=== PATIENT | female | born 1960 | race Caucasian/White ===

== ENCOUNTER 2017-09-27 17:14 | Inpatient (IN) | payer MEDICARE, OTHER ==
--- NOTE | 2017-09-27 17:28 | ED Physician Chart ---
ED Chief Complaint/HPI - Patient Information Date Seen:: 09/27/17 Time Seen:: 17:15 Chief Complaint:: Agitation History of Present Illness:: onset x 2 days of agitation, combative, and hostile behavior; no report of SIs, H/As, S/T, neck pain, C/P, SOB, cough, Abd. Pain, A/N/V/D/c, fever, chills, or urinary s/s Allergies:: Allergies Allergy/AdvReac Type Severity Reaction Status Date / Time lactose AdvReac Verified 08/31/17 16:05 lamotrigine [From Lamictal] AdvReac Verified 08/31/17 16:05 Penicillins [PCN] AdvReac Verified 08/31/17 16:05 Vitals:: Vital Signs - 8 hr 09/27/17 17:15 Temp 97.5 F HR 88 RR 16 O2 Sat % 98 Historian:: Patient, EMS Review:: Nurse's Note Reviewed, Old Chart Reviewed, EMS run form Reviewed ED Review of Systems - Review of Systems General/Constitutional: No fever, No chills, No weight loss, No weakness, No diaphoresis, No edema, No loss of appetite Skin: No skin lesions, No rash, No bruising Head: No headache, No light-headedness Eyes: No loss of vision, No pain, No diplopia ENT: No earache, No nasal drainage, No sore throat, No tinnitus Neck: No neck pain, No swelling, No thyromegaly, No stiffness, No mass noted Cardio Vascular: No chest pain, No palpitations, No PND, No orthopnea, No edema Pulmonary: No SOB, No cough, No sputum, No wheezing GI: No nausea, No vomiting, No diarrhea, No pain, No melena, No hematochezia, No constipation, No hematemesis G/U: No dysuria, No frequency, No hematuria, No nacturia 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 vaginal discharge, No abnormal vaginal bleed, No contraction Musculoskeletal: No bone or joint pain, No back pain, No muscle pain Endocrine: Polyuria, Polydipsia Psychiatric: Prior psych history, Depression, Anxiety, No suicidal ideation, No homicidal ideation, Auditory hallucination, No visual hallucination Hematopoietic: No bruising, No lymphadenopathy Allergic/Immuno: No urticaria, No angioedema Neurological: No syncope, No focal symptoms, No weakness, No paresthesia, No headache, No seizure, No dizziness, No confusion, No vertigo ED Past Medical History - Past Medical History Obtainable: Yes Past Medical History: HTN, DM, Asthma/COPD, PUD/GERD, Thyroid disorder Family History: Diabetes Melitus, HTN Social History: Non Smoker, No Alcohol, No Drug Use, Single, Care Facility Surgical History: None Psychiatricy History: Schizophrenia, Bipolar Medication: Reviewed Family Medical History - Family Member Mother History Unknown: Yes Ethnicity: Unknown Living Status: Unknown Hx Family Cancer: No Hx Family Coronary Artery Disease: No Hx Family Hypertension: No Hx Family Stroke: No Hx Family Diabetes: No Hx Family Seizures: No Hx Family AIDS: No Hx Family HIV: No Hx Family Hepatitis: No Hx Family Psychiatric Problems: No ED Physical Exam - Physical Examination General/Constitutional: Awake, Well-developed, well-nourished, Alert, No distress, GCS 15, Non-toxic appearing, Ambulatory Head: Atraumatic Eyes: Lids, conjuctiva normal, PERRL, EOMI Skin: Nl inspection, No rash, No skin lesions, No ecchymosis, Well hydrated, No lymphadenopathy ENMT: External ears, nose nl, TM canals nl, Nasal exam nl, Lips, teeth, gums nl , Oropharynx nl, Tonsils nl Neck: Nontender, Full ROM w/o pain, No JVD, No nuchal rigidity, No bruit, No mass, No stridor Respiratory: Nl effort/Exclusion, Clear to Auscultation, No Wheeze/Rhonchi/Rales Cardio Vascular: RRR, No murmur, gallop, rubs, NL S1 S2, Carotid/Femoral/Distal pulses equal bilaterally GI: No tenderness/rebounding/guarding, No organomegaly, No hernia, Normal BS's, Nondistended, No mass/bruits, No McBurney tenderness : No CVA tenderness Extremities: No tenderness or effusion, Full ROM, normal strength in all extremities, No edema, Normal digits & nails Neuro/Psych: Alert/oriented, DTR's symmetric, Normal sensory exam, Normal motor strength, Judgement/insight normal, Mood normal, Normal gait, No focal deficits Misc: Normal back, No paraspinal tenderness ED Labs/Radiology/EKG Results - EKG Interpretations EKG Time:: 18:37 Rate & Rhythm: 89; NSR Comments:: non-specific st-t changes ED Septic Shock - . Is Septic Shock (SBP<90, OR Lactate>4 mmol\L) present?: No - <6hrs of presentation: Vital Signs: Vital Signs - 8 hr 09/27/17 17:15 Temp 97.5 F HR 88 RR 16 O2 Sat % 98
[2017-09-27] MEDS ORDERED: Haloperidol Lactate 5 mg/mL 1mL Vial IM STA (17:49)
[2017-09-27 18:28] LABS: % BASOPHILS 0.8 % (0.0-2.0); % EOSINOPHILS 2.8 % (0.0-5.0); % MONOCYTES 6.8 % (2.0-10.0); % NEUTROPHILS 65.6 % (40.0-80.0); BASOPHILE ABSOLUTE 0.1 Th/cumm (0-0.2); EOSINOPHILE ABSOLUTE 0.3 Th/cmm (0.1-0.4); HEMATOCRIT 37.7 % (41.0-60); HEMOGLOBIN 12.4 gm/dL (12-16); LYMPHOCYTE ABSOLUTE 2.8 Th/cmm (1.5-3.0); MEAN CELL VOLUME 85.3 fl (81-100); MEAN CORPUSCULAR HEMOGLOBIN 28.1 pg (27.0-31.0); MEAN CORPUSCULAR HGB CONC 32.9 pg (28.0-36.0); MEAN PLATELET VOLUME 7.5 fl; MONOCYTE ABSOLUTE 0.8 Th/cmm (0.3-1.0); NEUTROPHILE ABSOLUTE 7.5 Th/cmm (1.8-8.0); RED BLOOD COUNT 4.43 Mil/cmm (3.80-5.10); RED CELL DISTRIBUTION WIDTH 12.8 % (11.5-20.0)
[2017-09-27 18:46] LABS: ACETAMINOPHEN < 10.0 ug/mL (10.0-30.0); ALB/GLOB RATIO 1.1 (1.0-1.8); ALKALINE PHOSPHATASE 89 U/L (34-104); ANION GAP 11.3 (7.0-16.0); BILIRUBIN,TOTAL 0.2 mg/dL (0.3-1.0); BUN - UREA NITROGEN 13 mg/dL (7-25); CALCIUM SERUM 9.4 mg/dL (8.6-10.3); CARBON DIOXIDE 27.3 mEq/L (21.0-31.0); CHLORIDE 98 mEq/L (98-107); CHOLESTEROL 231 mg/dL (<200); CREATININE - SERUM 0.9 mg/dL (0.6-1.2); GFR AFRICAN-AMERICAN > 60.0 ml/min (>90); GFR NON AFRICAN-AMERICAN > 60.0 ml/min; GLUCOSE 291 mg/dL (70-105); HDL -HIGH DENSITY LIPOPROTEIN 51 mg/dL (23-92); POTASSIUM SERUM 3.6 mEq/L (3.5-5.1); SALICYLATES (ASPIRIN) < 25.0 mg/L (30.0-100.0); SGOT 11 U/L (13-39); SGPT/ALT 10 U/L (7-52); SODIUM SERUM 133 mEq/L (136-145); TOTAL PROTEIN,SERUM 7.8 gm/dL (6.0-8.3); TRIGLYCERIDES 126 mg/dL (<150)
[2017-09-27 18:52] LABS: PLATELET COUNT 415 Th/cmm (150-400); WHITE BLOOD COUNT 11.5 Th/cmm (4.8-10.8)
[2017-09-27] MEDS ORDERED: Haloperidol Lactate 5 mg/mL 1mL Vial ONE (18:58)
[2017-09-27] MEDS ORDERED: cefTRIAXone 1 GM in Sodium Chloride 0.9% 50 ML IV ONE (19:52)
[2017-09-27] MEDS ORDERED: Sodium Chloride 0.9% 1,000 ML IV ONE (19:52)
[2017-09-27 20:14] LABS: URINE MICROSCOPIC INDICATED? YES; URINE SOURCE CLEAN C
[2017-09-27 20:17] LABS: URINE BILIRUBIN NEGATIVE (NEGATIVE); URINE BLOOD NEGATIVE (NEGATIVE); URINE GLUCOSE (UA) >=1000 mg/dL (NEGATIVE); URINE KETONE NEGATIVE (NEGATIVE); URINE LEUKOCYTE ESTERASE NEGATIVE (NEGATIVE); URINE NITRATE NEGATIVE (NEGATIVE); URINE PROTEIN NEGATIVE (NEGATIVE); URINE UROBILINOGEN 0.2 E.U./dL (0.2 - 1.0)
[2017-09-27 20:18] LABS: URINE CLARITY CLEAR (CLEAR); URINE COLOR YELLOW
[2017-09-27 20:19] LABS: URINE BACTERIA NONE SEEN /hpf (NONE SEEN); URINE EPITHELIAL CELLS NONE SEEN /lpf (FEW); URINE RBC NONE SEEN /hpf (0-5); URINE WBC NONE SEEN /hpf (0-5)
[2017-09-27 20:28] LABS: AMPHETAMINE URINE NEGATIVE (NEGATIVE); BARBITURATES URINE NEGATIVE (NEGATIVE); BENZODIAZEPINES QUAL URINE NEGATIVE (NEGATIVE); CANNABINOID THC NEGATIVE (NEGATIVE); COCAINE METABOLITE QUAL URINE NEGATIVE (NEGATIVE); METHADONE URINE NEGATIVE (NEGATIVE); METHAMPHETAMINES QUAL URINE NEGATIVE (NEGATIVE); OPIATES (MORPHINE) QUAL. URINE NEGATIVE (NEGATIVE); PHENCYCLIDINE (PCP) URINE NEGATIVE (NEGATIVE); TRICYCLICS (TCA) QUAL. URINE NEGATIVE (NEGATIVE)
[2017-09-27] MEDS ORDERED: Magnesium Hydroxide (MOM) 30 mL UDC PO PRN (21:56)
[2017-09-27 23:25] VITALS: BP 130/82
--- NOTE | 2017-09-28 00:22 | History & Physical ---
ADMIT DATE: 09/27/2017 HISTORY OF PRESENT ILLNESS: The patient is a 57-year-old female with a long history of diabetes mellitus, hypothyroidism, psychosis, hyperlipidemia, asthma, admitted to [facility] for evaluation and treatment. The patient has been very agitated, confused and combative. PAST MEDICAL HISTORY: Significant for hypothyroidism, diabetes mellitus, hyperlipidemia, asthma and psychosis. PAST SURGICAL HISTORY: No recent surgery. ALLERGIES: She is allergic to LACTOSE, PENICILLIN and LAMOTRIGINE. SOCIAL HISTORY: No smoking, alcohol or drugs. FAMILY HISTORY: Noncontributory. MEDICATIONS: Follow admission reconciliation. REVIEW OF SYSTEMS: IMMUNOSYSTEM: No history of chronic immune disorder. CARDIOVASCULAR SYSTEM: No coronary artery disease. ENDOCRINE SYSTEM: She has history of diabetes mellitus and hypothyroidism. GASTROINTESTINAL SYSTEM: No upper or lower gastrointestinal bleed. NEUROLOGICAL SYSTEM: History of psychosis. MUSCULOSKELETAL SYSTEM: No muscular dystrophy. HEMATOLOGICAL: No bleeding tendency. RESPIRATORY SYSTEM: She has history of asthma. GENITOURINARY: No dysuria or hematuria. PHYSICAL EXAMINATION: GENERAL: She is awake, not coherent. VITAL SIGNS: Temperature 97.5, heart rate 88 and blood pressure 130/70. HEENT: Normocephalic. Pupils reacting to light and accommodation. Sclerae are clear. NECK: Supple. Negative for lymphadenopathy, JVD or bruit. CHEST: Entry of air bilaterally normal. No rhonchi or wheezing. HEART: S1 and S2 normal. No gallop rhythm. ABDOMEN: Soft, bowel sounds positive. EXTREMITIES: No edema. NEUROLOGIC: Awake, alert, not fully coherent. No motor or sensory deficit. LABORATORY DATA: White blood cell 11.5, hemoglobin 12.4, hematocrit 37.7, and platelet is 415. Sodium 133, potassium 3.6, BUN is 13, creatinine 0.9 and glucose 291. ASSESSMENT: 1. Diabetes mellitus. 2. Hypothyroidism. 3. Asthma. 4. Hyperlipidemia. 5. Psychosis. PLAN: The patient was admitted to the hospital under Dr. Hollingsworth's service. Medical problems to be addressed during hospitalization are psychosis and dementia. Medical problems to be addressed at discharge are diabetes mellitus, hypothyroidism and asthma. The patient is medically stable for activity. Thank you, Dr. Hollingsworth, for asking me to see your patient. JOB# [id number]
[2017-09-28] MEDS: Levothyroxine 0.075 Mg Tab PO SCH (06:39)
[2017-09-28] MEDS: Pantoprazole 40 mg EC Tab PO SCH (06:39)
[2017-09-28] MEDS: INSULIN ASPART SLIDING SCALE 100 UNITS/ML UNIT SUBQ SCH ×4 (06:46→21:23)
[2017-09-28] MEDS: Multivitamin Tab PO SCH (08:40)
--- NOTE | 2017-09-28 13:03 | Internal Medicine Prog Note ---
Internal Medicine Subjective - Subjective Service Date: 09/28/17 Patient seen and examined:: with staff Patient is:: awake, verbal, in bed, confused Per staff patient has:: no adverse event Internal Medicine Objective - Results Result Diagrams: 09/27/17 18:20 09/27/17 18:20 Recent Labs: Laboratory Last Values WBC 11.5 Th/cmm (4.8-10.8) H D 09/27/17 18:20 RBC 4.43 Mil/cmm (3.80-5.10) 09/27/17 18:20 Hgb 12.4 gm/dL (12-16) 09/27/17 18:20 Hct 37.7 % (41.0-60) L 09/27/17 18:20 MCV 85.3 fl (81-100) 09/27/17 18:20 MCH 28.1 pg (27.0-31.0) 09/27/17 18:20 MCHC Differential 32.9 pg (28.0-36.0) 09/27/17 18:20 RDW 12.8 % (11.5-20.0) 09/27/17 18:20 Plt Count 415 Th/cmm (150-400) H D 09/27/17 18:20 MPV 7.5 fl 09/27/17 18:20 Neutrophils % 65.6 % (40.0-80.0) 09/27/17 18:20 Lymphocytes % 24.0 % (20.0-50.0) 09/27/17 18:20 Monocytes % 6.8 % (2.0-10.0) 09/27/17 18:20 Eosinophils % 2.8 % (0.0-5.0) 09/27/17 18:20 Basophils % 0.8 % (0.0-2.0) 09/27/17 18:20 Sodium 133 mEq/L (136-145) L 09/27/17 18:20 Potassium 3.6 mEq/L (3.5-5.1) 09/27/17 18:20 Chloride 98 mEq/L (98-107) 09/27/17 18:20 Carbon Dioxide 27.3 mEq/L (21.0-31.0) 09/27/17 18:20 Anion Gap 11.3 (7.0-16.0) 09/27/17 18:20 BUN 13 mg/dL (7-25) 09/27/17 18:20 Creatinine 0.9 mg/dL (0.6-1.2) 09/27/17 18:20 Est GFR ( Amer) > 60.0 ml/min (>90) 09/27/17 18:20 Est GFR (Non-Af Amer) > 60.0 ml/min 09/27/17 18:20 BUN/Creatinine Ratio 14.4 09/27/17 18:20 Glucose 291 mg/dL (70-105) H 09/27/17 18:20 Calcium 9.4 mg/dL (8.6-10.3) 09/27/17 18:20 Total Bilirubin 0.2 mg/dL (0.3-1.0) L 09/27/17 18:20 AST 11 U/L (13-39) L 09/27/17 18:20 ALT 10 U/L (7-52) 09/27/17 18:20 Alkaline Phosphatase 89 U/L (34-104) 09/27/17 18:20 Total Protein 7.8 gm/dL (6.0-8.3) 09/27/17 18:20 Albumin 4.0 gm/dL (3.7-5.3) 09/27/17 18:20 Globulin 3.8 gm/dL 09/27/17 18:20 Albumin/Globulin Ratio 1.1 (1.0-1.8) 09/27/17 18:20 Triglycerides 126 mg/dL (<150) 09/27/17 18:20 Cholesterol 231 mg/dL (<200) H 09/27/17 18:20 LDL Cholesterol Direct 182 mg/dL (75-193) 09/27/17 18:20 HDL Cholesterol 51 mg/dL (23-92) 09/27/17 18:20 TSH 0.37 uIU/ml (0.34-5.60) 09/27/17 18:20 Serum , Qual NEGATIVE (NEGATIVE) 09/27/17 18:20 Urine Source CLEAN C 09/27/17 19:40 Urine Color YELLOW 09/27/17 19:40 Urine Clarity CLEAR (CLEAR) 09/27/17 19:40 Urine pH 6.0 (4.6 - 8.0) 09/27/17 19:40 Ur Specific [place] 1.010 (1.005-1.030) 09/27/17 19:40 Urine Protein NEGATIVE mg/dL (NEGATIVE) 09/27/17 19:40 Urine Glucose (UA) >=1000 mg/dL (NEGATIVE) H 09/27/17 19:40 Urine Ketones NEGATIVE mg/dL (NEGATIVE) 09/27/17 19:40 Urine Blood NEGATIVE (NEGATIVE) 09/27/17 19:40 Urine Nitrate NEGATIVE (NEGATIVE) 09/27/17 19:40 Urine Bilirubin NEGATIVE (NEGATIVE) 09/27/17 19:40 Urine Urobilinogen 0.2 E.U./dL (0.2 - 1.0) 09/27/17 19:40 Ur Leukocyte Esterase NEGATIVE (NEGATIVE) 09/27/17 19:40 Urine RBC NONE SEEN /hpf (0-5) 09/27/17 19:40 Urine WBC NONE SEEN /hpf (0-5) 09/27/17 19:40 Ur Epithelial Cells NONE SEEN /lpf (FEW) 09/27/17 19:40 Urine Bacteria NONE SEEN /hpf (NONE SEEN) 09/27/17 19:40 Salicylates < 25.0 mg/L (30.0-100.0) L 09/27/17 18:20 Urine Opiates Screen NEGATIVE (NEGATIVE) 09/27/17 19:40 Urine Methadone Screen NEGATIVE (NEGATIVE) 09/27/17 19:40 Acetaminophen < 10.0 ug/mL (10.0-30.0) L 09/27/17 18:20 Ur Barbiturates Screen NEGATIVE (NEGATIVE) 09/27/17 19:40 Ur Tricyclics Screen NEGATIVE (NEGATIVE) 09/27/17 19:40 Ur Phencyclidine Scrn NEGATIVE (NEGATIVE) 09/27/17 19:40 Amphetamines Screen NEGATIVE (NEGATIVE) 09/27/17 19:40 U Methamphetamines Scrn NEGATIVE (NEGATIVE) 09/27/17 19:40 U Benzodiazepines Scrn NEGATIVE (NEGATIVE) 09/27/17 19:40 U Cocaine Metab Screen NEGATIVE (NEGATIVE) 09/27/17 19:40 U Cannabinoids Screen NEGATIVE (NEGATIVE) 09/27/17 19:40 Ethyl Alcohol < 10 mg/dL (0-10) 09/27/17 18:20 RPR NONREACTIVE (NONREACTIVE) 09/27/17 18:20 - Physical Exam Vitals and I&O: Vital Signs Temp 98.8 F 09/28/17 06:25 Pulse 86 09/28/17 06:25 Resp 20 09/28/17 06:25 BP 152/82 09/28/17 06:25 Pulse Ox 94 09/28/17 06:25 Intake & Output 09/27/17 09/28/17 09/28/17 18:59 06:59 18:59 Intake Total 120 Balance 120 Intake: Oral 120 Other: # Voids 3 # Bowel Movements 0 Active Medications: Current Medications Acetaminophen (Tylenol) 650 mg PO Q4HR PRN PRN Reason: Mild Pain / Temp above 100 Stop: 11/26/17 21:55 Albuterol Sulfate (Albuterol 2.5mg/3ml Neb Ud) 2.5 mg HHN Q6H PRN PRN Reason: Bronchospasm Stop: 11/26/17 21:55 Docusate Sodium (Colace) 100 mg PO BID [facility] Stop: 11/27/17 08:59 Last Admin: 09/28/17 08:46 Dose: Not Given Gabapentin (Neurontin) 300 mg PO TID [facility] Stop: 11/27/17 08:59 Last Admin: 09/28/17 08:40 Dose: 300 mg Insulin Aspart (Novolog Insulin Sliding Scale) 100 units SUBQ ACHS [facility] PRN Reason: Protocol Stop: 11/27/17 07:29 Last Admin: 09/28/17 11:40 Dose: Not Given Ipratropium [place] (Atrovent Neb 0.5mg/2.5ml) 0.5 mg HHN Q6HRT PRN PRN Reason: Bronchospasm Stop: 11/26/17 21:55 Levothyroxine Sodium (Synthroid) 0.075 mg PO QDAC [facility] Stop: 11/27/17 07:29 Last Admin: 09/28/17 06:39 Dose: 0.075 mg Lorazepam (Ativan) 0.5 mg PO Q4HR PRN; Protocol PRN Reason: Anxiety Stop: 11/26/17 21:55 Magnesium Hydroxide (Milk Of Magnesia) 30 ml PO DAILY PRN PRN Reason: Constipation Stop: 11/26/17 21:55 Metformin HCl (Glucophage) 1,000 mg PO BIDWM [facility] Stop: 11/27/17 07:59 Last Admin: 09/28/17 08:47 Dose: Not Given Multivitamins/Vitamin C (Theragran) 1 tab PO DAILY [facility] Stop: 11/27/17 08:59 Last Admin: 09/28/17 08:40 Dose: 1 tab Pantoprazole Sodium (Protonix) 40 mg PO QDAC [facility] Stop: 11/27/17 07:29 Last Admin: 09/28/17 06:39 Dose: 40 mg Quetiapine Fumarate (Seroquel) 100 mg PO HS [facility] PRN Reason: Protocol Stop: 11/27/17 20:59 Quetiapine Fumarate (Seroquel) 25 mg PO BID [facility] PRN Reason: Protocol Stop: 11/27/17 08:59 Last Admin: 09/28/17 11:43 Dose: Not Given General: demented HEENT: PERRLA, anicteric sclerae, throat clear Neck: No thyromegaly Lungs: CTAB Cardiovascular: RRR, Normal S1, Normal S2, without murmur Abdomen: soft, non-tender, non-distended Neurological: no change Internal Medicine Assmt/Plan - Assessment Assessment: 1.DM. 2.HYPERLIPIDEMIA. 3.HYPOTHYROIDISM. 4.DEMENTIA. - Plan Plan: CONTINUE ON CURRENT MEDICATION AND DIET.
[2017-09-28 13:35] LABS: A1C % 10.7 % (4.0-6.0)
[2017-09-29] MEDS: INSULIN ASPART SLIDING SCALE 100 UNITS/ML UNIT SUBQ SCH ×4 (06:38→20:46)
[2017-09-29] MEDS: Levothyroxine 0.075 Mg Tab PO SCH (06:39)
[2017-09-29] MEDS: Pantoprazole 40 mg EC Tab PO SCH (06:39)
[2017-09-29] MEDS: Multivitamin Tab PO SCH (10:06)
[2017-09-29] MEDS ORDERED: Haloperidol Lactate 5 mg/mL 1mL Vial ONE (15:30)
[2017-09-29] MEDS ORDERED: Haloperidol Lactate 5 mg/mL 1mL Vial IM ONE (15:31)
--- NOTE | 2017-09-29 16:29 | Psychosocial Evaluation ---
DATE OF SERVICE: INITIAL EVALUATION MENTAL STATUS EXAM PATIENT'S AGE: 57. SEX: Female. PHYSICIAN: Whitley Hollingsworth MD, MPH CHIEF COMPLAINT: "I was mad." HISTORY OF PRESENT ILLNESS: The patient was transferred from [facility] because of increased agitation and trying to leave the facility. The patient also was breaking windows and she also was acting bizarre. She also was not able to follow instructions from staff and was getting agitated when staff tried to redirect her. She also has been suspicious and has been paranoid. PAST PSYCHIATRIC HISTORY: The patient was recently discharged from the hospital because of similar episodes of bizarre behavior and agitation. PAST MEDICAL HISTORY: The patient has hypothyroidism as well as non-insulin dependent diabetes mellitus. SOCIAL HISTORY: The patient lives in [facility]. She said that she has 5 children. She denies any alcohol or any street drug use. ALLERGIES: No known allergies. MENTAL STATUS EXAMINATION: The patient appears her stated age. Anxious. Cooperative. Paranoid and easily agitated and mood is irritable. The patient also denied any auditory or visual hallucinations, but she seems to be responding to stimuli. The patient denies any thoughts of suicide or homicide. The patient is alert and oriented to time, place, person, and situation. Intact immediate, recent and remote memories. Poor insight and poor judgment. ASSESSMENT: PRIMARY DIAGNOSIS: Schizoaffective disorder, bipolar type, with psychotic features. MEDICAL DIAGNOSES: Hypothyroidism. Ufr-kisarwh-rmwoeczdu diabetes mellitus. TREATMENT PLAN: We will monitor the patient's behavior and condition closely. Also, increase Seroquel to 25 mg twice a day and continue to monitor her behavior closely. ESTIMATED LENGTH OF STAY: 5-7 days. THE PATIENT'S STRENGTHS AND WEAKNESSES: The patient's strength is not clear at this time. Weaknesses are her poor impulse control and ineffective coping. AFTER DISCHARGE PLAN: The patient will return to [facility] and outpatient treatment and followup will continue. CRITERIA FOR DISCHARGE: The patient will have better impulse control and less agitated and less irritable and adjust psychotropic medications. JOB# [id number]
--- NOTE | 2017-09-29 18:50 | Internal Medicine Prog Note ---
Internal Medicine Subjective - Subjective Service Date: 09/29/17 Patient seen and examined:: with staff Patient is:: awake, verbal, in bed, confused Per staff patient has:: no adverse event Internal Medicine Objective - Results Result Diagrams: 09/27/17 18:20 09/27/17 18:20 Recent Labs: Laboratory Last Values WBC 11.5 Th/cmm (4.8-10.8) H D 09/27/17 18:20 RBC 4.43 Mil/cmm (3.80-5.10) 09/27/17 18:20 Hgb 12.4 gm/dL (12-16) 09/27/17 18:20 Hct 37.7 % (41.0-60) L 09/27/17 18:20 MCV 85.3 fl (81-100) 09/27/17 18:20 MCH 28.1 pg (27.0-31.0) 09/27/17 18:20 MCHC Differential 32.9 pg (28.0-36.0) 09/27/17 18:20 RDW 12.8 % (11.5-20.0) 09/27/17 18:20 Plt Count 415 Th/cmm (150-400) H D 09/27/17 18:20 MPV 7.5 fl 09/27/17 18:20 Neutrophils % 65.6 % (40.0-80.0) 09/27/17 18:20 Lymphocytes % 24.0 % (20.0-50.0) 09/27/17 18:20 Monocytes % 6.8 % (2.0-10.0) 09/27/17 18:20 Eosinophils % 2.8 % (0.0-5.0) 09/27/17 18:20 Basophils % 0.8 % (0.0-2.0) 09/27/17 18:20 Sodium 133 mEq/L (136-145) L 09/27/17 18:20 Potassium 3.6 mEq/L (3.5-5.1) 09/27/17 18:20 Chloride 98 mEq/L (98-107) 09/27/17 18:20 Carbon Dioxide 27.3 mEq/L (21.0-31.0) 09/27/17 18:20 Anion Gap 11.3 (7.0-16.0) 09/27/17 18:20 BUN 13 mg/dL (7-25) 09/27/17 18:20 Creatinine 0.9 mg/dL (0.6-1.2) 09/27/17 18:20 Est GFR ( Amer) > 60.0 ml/min (>90) 09/27/17 18:20 Est GFR (Non-Af Amer) > 60.0 ml/min 09/27/17 18:20 BUN/Creatinine Ratio 14.4 09/27/17 18:20 Glucose 291 mg/dL (70-105) H 09/27/17 18:20 POC Glucose 220 MG/DL (70 - 105) H 09/29/17 06:09 Hemoglobin A1c % 10.7 % (4.0-6.0) H 09/27/17 18:20 Calcium 9.4 mg/dL (8.6-10.3) 09/27/17 18:20 Total Bilirubin 0.2 mg/dL (0.3-1.0) L 09/27/17 18:20 AST 11 U/L (13-39) L 09/27/17 18:20 ALT 10 U/L (7-52) 09/27/17 18:20 Alkaline Phosphatase 89 U/L (34-104) 09/27/17 18:20 Total Protein 7.8 gm/dL (6.0-8.3) 09/27/17 18:20 Albumin 4.0 gm/dL (3.7-5.3) 09/27/17 18:20 Globulin 3.8 gm/dL 09/27/17 18:20 Albumin/Globulin Ratio 1.1 (1.0-1.8) 09/27/17 18:20 Triglycerides 126 mg/dL (<150) 09/27/17 18:20 Cholesterol 231 mg/dL (<200) H 09/27/17 18:20 LDL Cholesterol Direct 182 mg/dL (75-193) 09/27/17 18:20 HDL Cholesterol 51 mg/dL (23-92) 09/27/17 18:20 TSH 0.37 uIU/ml (0.34-5.60) 09/27/17 18:20 Serum , Qual NEGATIVE (NEGATIVE) 09/27/17 18:20 Urine Source CLEAN C 01/09/18 19:40 Urine Color YELLOW 09/27/17 19:40 Urine Clarity CLEAR (CLEAR) 09/27/17 19:40 Urine pH 6.0 (4.6 - 8.0) 09/27/17 19:40 Ur Specific [place] 1.010 (1.005-1.030) 09/27/17 19:40 Urine Protein NEGATIVE mg/dL (NEGATIVE) 09/27/17 19:40 Urine Glucose (UA) >=1000 mg/dL (NEGATIVE) H 09/27/17 19:40 Urine Ketones NEGATIVE mg/dL (NEGATIVE) 09/27/17 19:40 Urine Blood NEGATIVE (NEGATIVE) 09/27/17 19:40 Urine Nitrate NEGATIVE (NEGATIVE) 09/27/17 19:40 Urine Bilirubin NEGATIVE (NEGATIVE) 09/27/17 19:40 Urine Urobilinogen 0.2 E.U./dL (0.2 - 1.0) 09/27/17 19:40 Ur Leukocyte Esterase NEGATIVE (NEGATIVE) 09/27/17 19:40 Urine RBC NONE SEEN /hpf (0-5) 09/27/17 19:40 Urine WBC NONE SEEN /hpf (0-5) 09/27/17 19:40 Ur Epithelial Cells NONE SEEN /lpf (FEW) 09/27/17 19:40 Urine Bacteria NONE SEEN /hpf (NONE SEEN) 09/27/17 19:40 Salicylates < 25.0 mg/L (30.0-100.0) L 09/27/17 18:20 Urine Opiates Screen NEGATIVE (NEGATIVE) 09/27/17 19:40 Urine Methadone Screen NEGATIVE (NEGATIVE) 09/27/17 19:40 Acetaminophen < 10.0 ug/mL (10.0-30.0) L 09/27/17 18:20 Ur Barbiturates Screen NEGATIVE (NEGATIVE) 09/27/17 19:40 Ur Tricyclics Screen NEGATIVE (NEGATIVE) 09/27/17 19:40 Ur Phencyclidine Scrn NEGATIVE (NEGATIVE) 09/27/17 19:40 Amphetamines Screen NEGATIVE (NEGATIVE) 09/27/17 19:40 U Methamphetamines Scrn NEGATIVE (NEGATIVE) 09/27/17 19:40 U Benzodiazepines Scrn NEGATIVE (NEGATIVE) 09/27/17 19:40 U Cocaine Metab Screen NEGATIVE (NEGATIVE) 09/27/17 19:40 U Cannabinoids Screen NEGATIVE (NEGATIVE) 09/27/17 19:40 Ethyl Alcohol < 10 mg/dL (0-10) 09/27/17 18:20 RPR NONREACTIVE (NONREACTIVE) 09/27/17 18:20 - Physical Exam Vitals and I&O: Vital Signs Temp 96.3 F 09/29/17 14:00 Pulse 97 09/29/17 14:00 Resp 20 09/29/17 14:00 BP 117/72 09/29/17 14:00 Pulse Ox 96 09/29/17 14:00 Intake & Output 09/28/17 09/29/17 09/29/17 18:59 06:59 18:59 Intake Total [phone] Balance [phone] Intake: Oral [phone] Other: # Voids 3 3 # Bowel Movements 1 1 Active Medications: Current Medications Acetaminophen (Tylenol) 650 mg PO Q4HR PRN PRN Reason: Mild Pain / Temp above 100 Stop: 11/26/17 21:55 Albuterol Sulfate (Albuterol 2.5mg/3ml Neb Ud) 2.5 mg HHN Q6H PRN PRN Reason: Bronchospasm Stop: 11/26/17 21:55 Docusate Sodium (Colace) 100 mg PO BID [facility] Stop: 11/27/17 08:59 Last Admin: 09/29/17 16:49 Dose: Not Given Gabapentin (Neurontin) 300 mg PO TID [facility] Stop: 11/27/17 08:59 Last Admin: 09/29/17 14:02 Dose: 300 mg Insulin Aspart (Novolog Insulin Sliding Scale) 100 units SUBQ ACHS [facility]OD[facility] PRN Reason: Protocol Stop: 11/27/17 07:29 Last Admin: 09/29/17 18:04 Dose: 6 units Ipratropium [place] (Atrovent Neb 0.5mg/2.5ml) 0.5 mg HHN Q6HRT PRN PRN Reason: Bronchospasm Stop: 11/26/17 21:55 Levothyroxine Sodium (Synthroid) 0.075 mg PO QDAC [facility] Stop: 11/27/17 07:29 Last Admin: 09/29/17 06:39 Dose: 0.075 mg Lorazepam (Ativan) 0.5 mg PO Q4HR PRN; Protocol PRN Reason: Anxiety Stop: 11/26/17 21:55 Magnesium Hydroxide (Milk Of Magnesia) 30 ml PO DAILY PRN PRN Reason: Constipation Stop: 11/26/17 21:55 Metformin HCl (Glucophage) 1,000 mg PO BIDWM [facility] Stop: 11/27/17 07:59 Last Admin: 09/29/17 10:05 Dose: Not Given Multivitamins/Vitamin C (Theragran) 1 tab PO DAILY [facility] Stop: 11/27/17 08:59 Last Admin: 09/29/17 10:06 Dose: 1 tab Mupirocin (Bactroban Oint) 1 appl NS BID [facility] Stop: 10/04/17 17:01 Pantoprazole Sodium (Protonix) 40 mg PO QDAC [facility] Stop: 11/27/17 07:29 Last Admin: 09/29/17 06:39 Dose: 40 mg Quetiapine Fumarate (Seroquel) 100 mg PO HS [facility] PRN Reason: Protocol Stop: 11/27/17 20:59 Last Admin: 09/28/17 21:23 Dose: Not Given Quetiapine Fumarate (Seroquel) 25 mg PO BID [facility] PRN Reason: Protocol Stop: 11/27/17 08:59 Last Admin: 09/29/17 16:49 Dose: Not Given General: demented HEENT: PERRLA, anicteric sclerae, throat clear Neck: No thyromegaly Lungs: CTAB Cardiovascular: RRR, Normal S1, Normal S2, without murmur Abdomen: soft, non-tender, non-distended Neurological: no change Internal Medicine Assmt/Plan - Assessment Assessment: 1.DM. 2.HYPERLIPIDEMIA. 3.HYPOTHYROIDISM. 4.DEMENTIA. - Plan Plan: CONTINUE ON CURRENT MEDICATION AND DIET. Nutritional Asmnt/Malnutr-PDOC - Dietary Evaluation Malnutrition Findings (Please click <Entered> for more info): Nutritional Asmnt/Malnutrition Start: 09/28/17 19: 16 Text: Status: Complete Freq: Document 09/28/17 19:16 LCHENG (Rec: 09/28/17 19:21 [id number] [email or web address]) Nutritional Asmnt/Malnutrition Patient General Information Nutritional Screening Moderate Risk Diagnosis psychosis NOS Pertinent Medical Hx/Surgical Hx DM, hypothyroidism psychosis, hyperlidemidea, asthma Subjective Information Pt seen sleeping in bed at the time of visit, not able to provide nutrition education. Per notes, PO intake 50-75%. Current Diet Order/ Nutrition Support GLORIA, CCHO, low fat, low chelsterol, dairy free, mocha mix with meals Pertinent Medications colace, novolog, synthroid, glucophage, ehragran, protonix , seroquel Pertinent Labs 09/27 Na 133, GLucose 291, A1c 10.7 Nutritional Hx/Data Height 1.47 m Height (Calculated Centimeters) 147.3 Current Weight (lbs) 84.368 kg Weight (Calculated Kilograms) 84.4 Weight (Calculated Grams) 47642.2 Spring Body Weight 96 % Spring Body Weight 193 Body Mass Index (BMI) 38.8 Weight Status Obese GI Symptoms GI Symptoms None Last BM 09/28 Difficult in: None Skin Integrity/Comment: intact Estimated Nutritional Goals BEE in Kcals: Adj wt of IBW Calories/Kcals/Kg 30-35 adj wt 54kg Kcals Calculated 5041-5785 Protein: Adj wt of IBW Protein g/k.2 Protein Calculated 65 Fluid: ml 4953-3328 Nutritional Problem 2. Problem Problem altered nutrition related lab values Etiology hx of DM Signs/Symptoms: GLucose 291, A1c 10.7 1. Problem Problem obesity Etiology possible excessive energy intake Signs/Symptoms: BMI 38.9 Malnutrition Alert Protein-Calorie Malnutrition N/A Is there a minimum of two criteria No selected? Query Text:Check all the applicable criteria. A minimum of two criteria are recommended for diagnosis of either severe or non-severe malnutrition. Intervention/Recommendation Comments 1. Continue with current diet as ordered. 2. Monitor PO intake, wt, labs and skin integrity 3. MD to adjust insulin for optimal glycemic control 4. F/U as moderate risk in 3-5 days, 10/01-10/03 Expected Outcomes/Goals Expected Outcomes/Goals 1. PO intake to meet at least 75% of nutritional needs. 2. Wt stability, skin to remain intact, labs to improve
--- NOTE | 2017-09-30 00:51 | Progress Notes ---
DATE: SUBJECTIVE: Chart reviewed and the patient interviewed, also discussed the patient's condition with the staff and reviewed records and labs. The patient continued to be severely agitated and she is still restless and severely paranoid. The patient also is still in angry and irritable mood, and she refused to take her medications yesterday and she is still uncooperative with the staff. She also does not have any idea or any reason for why did she leave the facility and why did she try to get out of the [place] [facility]. Her insight is still poor and she still has poor judgment. ASSESSMENT: The patient is still psychotic and agitated. TREATMENT PLAN: We will continue to monitor her behavior and her condition closely. Also, we will continue to work on her compliance with taking her medications and discussed with the patient the importance of taking her medications, and hopefully she will start to take her Seroquel and other medications later on today. [facility]# [id number]
[2017-09-30] MEDS: Pantoprazole 40 mg EC Tab PO SCH (06:34)
[2017-09-30] MEDS: INSULIN ASPART SLIDING SCALE 100 UNITS/ML UNIT SUBQ SCH ×4 (06:34→20:20)
[2017-09-30] MEDS: Levothyroxine 0.075 Mg Tab PO SCH (06:34)
[2017-09-30] MEDS: Multivitamin Tab PO SCH (08:12)
--- NOTE | 2017-09-30 19:56 | Internal Medicine Prog Note ---
Internal Medicine Subjective - Subjective Service Date: 09/30/17 Patient seen and examined:: with staff (SHE IS DOING BETTER) Patient is:: awake, verbal, in bed, confused Per staff patient has:: no adverse event Internal Medicine Objective - Results Result Diagrams: 09/27/17 18:20 09/27/17 18:20 Recent Labs: Laboratory Last Values WBC 11.5 Th/cmm (4.8-10.8) H D 09/27/17 18:20 RBC 4.43 Mil/cmm (3.80-5.10) 09/27/17 18:20 Hgb 12.4 gm/dL (12-16) 09/27/17 18:20 Hct 37.7 % (41.0-60) L 09/27/17 18:20 MCV 85.3 fl (81-100) 09/27/17 18:20 MCH 28.1 pg (27.0-31.0) 09/27/17 18:20 MCHC Differential 32.9 pg (28.0-36.0) 09/27/17 18:20 RDW 12.8 % (11.5-20.0) 09/27/17 18:20 Plt Count 415 Th/cmm (150-400) H D 09/27/17 18:20 MPV 7.5 fl 09/27/17 18:20 Neutrophils % 65.6 % (40.0-80.0) 09/27/17 18:20 Lymphocytes % 24.0 % (20.0-50.0) 09/27/17 18:20 Monocytes % 6.8 % (2.0-10.0) 09/27/17 18:20 Eosinophils % 2.8 % (0.0-5.0) 09/27/17 18:20 Basophils % 0.8 % (0.0-2.0) 09/27/17 18:20 Sodium 133 mEq/L (136-145) L 09/27/17 18:20 Potassium 3.6 mEq/L (3.5-5.1) 09/27/17 18:20 Chloride 98 mEq/L (98-107) 09/27/17 18:20 Carbon Dioxide 27.3 mEq/L (21.0-31.0) 09/27/17 18:20 Anion Gap 11.3 (7.0-16.0) 09/27/17 18:20 BUN 13 mg/dL (7-25) 09/27/17 18:20 Creatinine 0.9 mg/dL (0.6-1.2) 09/27/17 18:20 Est GFR ( Amer) > 60.0 ml/min (>90) 09/27/17 18:20 Est GFR (Non-Af Amer) > 60.0 ml/min 09/27/17 18:20 BUN/Creatinine Ratio 14.4 09/27/17 18:20 Glucose 291 mg/dL (70-105) H 09/27/17 18:20 POC Glucose 235 MG/DL (70 - 105) H 09/29/17 20:24 Hemoglobin A1c % 10.7 % (4.0-6.0) H 09/27/17 18:20 Calcium 9.4 mg/dL (8.6-10.3) 09/27/17 18:20 Total Bilirubin 0.2 mg/dL (0.3-1.0) L 09/27/17 18:20 AST 11 U/L (13-39) L 09/27/17 18:20 ALT 10 U/L (7-52) 09/27/17 18:20 Alkaline Phosphatase 89 U/L (34-104) 09/27/17 18:20 Total Protein 7.8 gm/dL (6.0-8.3) 09/27/17 18:20 Albumin 4.0 gm/dL (3.7-5.3) 09/27/17 18:20 Globulin 3.8 gm/dL 09/27/17 18:20 Albumin/Globulin Ratio 1.1 (1.0-1.8) 09/27/17 18:20 Triglycerides 126 mg/dL (<150) 09/27/17 18:20 Cholesterol 231 mg/dL (<200) H 09/27/17 18:20 LDL Cholesterol Direct 182 mg/dL (75-193) 09/27/17 18:20 HDL Cholesterol 51 mg/dL (23-92) 09/27/17 18:20 TSH 0.37 uIU/ml (0.34-5.60) 09/27/17 18:20 Serum , Qual NEGATIVE (NEGATIVE) 09/27/17 18:20 Urine Source CLEAN C 09/27/17 19:40 Urine Color YELLOW 09/27/17 19:40 Urine Clarity CLEAR (CLEAR) 09/27/17 19:40 Urine pH 6.0 (4.6 - 8.0) 09/27/17 19:40 Ur Specific [place] 1.010 (1.005-1.030) 09/27/17 19:40 Urine Protein NEGATIVE mg/dL (NEGATIVE) 09/27/17 19:40 Urine Glucose (UA) >=1000 mg/dL (NEGATIVE) H 09/27/17 19:40 Urine Ketones NEGATIVE mg/dL (NEGATIVE) 09/27/17 19:40 Urine Blood NEGATIVE (NEGATIVE) 09/27/17 19:40 Urine Nitrate NEGATIVE (NEGATIVE) 09/27/17 19:40 Urine Bilirubin NEGATIVE (NEGATIVE) 09/27/17 19:40 Urine Urobilinogen 0.2 E.U./dL (0.2 - 1.0) 09/27/17 19:40 Ur Leukocyte Esterase NEGATIVE (NEGATIVE) 09/27/17 19:40 Urine RBC NONE SEEN /hpf (0-5) 09/27/17 19:40 Urine WBC NONE SEEN /hpf (0-5) 09/27/17 19:40 Ur Epithelial Cells NONE SEEN /lpf (FEW) 09/27/17 19:40 Urine Bacteria NONE SEEN /hpf (NONE SEEN) 09/27/17 19:40 Salicylates < 25.0 mg/L (30.0-100.0) L 09/27/17 18:20 Urine Opiates Screen NEGATIVE (NEGATIVE) 09/27/17 19:40 Urine Methadone Screen NEGATIVE (NEGATIVE) 09/27/17 19:40 Acetaminophen < 10.0 ug/mL (10.0-30.0) L 09/27/17 18:20 Ur Barbiturates Screen NEGATIVE (NEGATIVE) 09/27/17 19:40 Ur Tricyclics Screen NEGATIVE (NEGATIVE) 09/27/17 19:40 Ur Phencyclidine Scrn NEGATIVE (NEGATIVE) 09/27/17 19:40 Amphetamines Screen NEGATIVE (NEGATIVE) 09/27/17 19:40 U Methamphetamines Scrn NEGATIVE (NEGATIVE) 09/27/17 19:40 U Benzodiazepines Scrn NEGATIVE (NEGATIVE) 09/27/17 19:40 U Cocaine Metab Screen NEGATIVE (NEGATIVE) 09/27/17 19:40 U Cannabinoids Screen NEGATIVE (NEGATIVE) 09/27/17 19:40 Ethyl Alcohol < 10 mg/dL (0-10) 09/27/17 18:20 RPR NONREACTIVE (NONREACTIVE) 09/27/17 18:20 - Physical Exam Vitals and I&O: Vital Signs Temp 98.3 F 09/30/17 15:22 Pulse 90 09/30/17 15:22 Resp 20 09/30/17 15:22 BP 119/55 09/30/17 15:22 Pulse Ox 97 09/30/17 15:22 Intake & Output 09/30/17 09/30/17 10/01/17 06:59 18:59 06:59 Intake Total 1200 Balance 1200 Intake: Oral 1200 Other: # Voids 3 Active Medications: Current Medications Acetaminophen (Tylenol) 650 mg PO Q4HR PRN PRN Reason: Mild Pain / Temp above 100 Stop: 11/26/17 21:55 Albuterol Sulfate (Albuterol 2.5mg/3ml Neb Ud) 2.5 mg HHN Q6H PRN PRN Reason: Bronchospasm Stop: 11/26/17 21:55 Docusate Sodium (Colace) 100 mg PO BID [facility] Stop: 11/27/17 08:59 Last Admin: 09/30/17 16:44 Dose: Not Given Gabapentin (Neurontin) 300 mg PO TID [facility] Stop: 11/27/17 08:59 Last Admin: 09/30/17 13:18 Dose: Not Given Insulin Aspart (Novolog Insulin Sliding Scale) 0 units SUBQ ACHS [facility] PRN Reason: Protocol Stop: 11/29/17 07:29 Last Admin: 09/30/17 16:08 Dose: 2 units Ipratropium [place] (Atrovent Neb 0.5mg/2.5ml) 0.5 mg HHN Q6HRT PRN PRN Reason: Bronchospasm Stop: 11/26/17 21:55 Levothyroxine Sodium (Synthroid) 0.075 mg PO QDAC [facility] Stop: 11/27/17 07:29 Last Admin: 09/30/17 06:34 Dose: 0.075 mg Lorazepam (Ativan) 0.5 mg PO Q4HR PRN; Protocol PRN Reason: Anxiety Stop: 11/26/17 21:55 Magnesium Hydroxide (Milk Of Magnesia) 30 ml PO DAILY PRN PRN Reason: Constipation Stop: 11/26/17 21:55 Metformin HCl (Glucophage) 1,000 mg PO BIDWM [facility] Stop: 11/27/17 07:59 Last Admin: 09/30/17 17:33 Dose: Not Given Multivitamins/Vitamin C (Theragran) 1 tab PO DAILY [facility] Stop: 11/27/17 08:59 Last Admin: 09/30/17 08:12 Dose: 1 tab Mupirocin (Bactroban Oint) 1 appl NS BID [facility] Stop: 10/04/17 17:01 Last Admin: 09/30/17 16:47 Dose: Not Given Pantoprazole Sodium (Protonix) 40 mg PO QDAC [facility] Stop: 11/27/17 07:29 Last Admin: 09/30/17 06:34 Dose: 40 mg Quetiapine Fumarate (Seroquel) 100 mg PO HS [facility] PRN Reason: Protocol Stop: 11/27/17 20:59 Last Admin: 09/29/17 20:45 Dose: 100 mg Quetiapine Fumarate (Seroquel) 25 mg PO BID [facility] PRN Reason: Protocol Stop: 11/27/17 08:59 Last Admin: 09/30/17 16:44 Dose: Not Given General: demented HEENT: PERRLA, anicteric sclerae, throat clear Neck: No thyromegaly Lungs: CTAB Cardiovascular: RRR, Normal S1, Normal S2, without murmur Abdomen: soft, non-tender, non-distended Neurological: no change Internal Medicine Assmt/Plan - Assessment Assessment: 1.DM. 2.HYPERLIPIDEMIA. 3.HYPOTHYROIDISM. 4.DEMENTIA. - Plan Plan: CONTINUE ON CURRENT MEDICATION AND DIET. Nutritional Asmnt/Malnutr-PDOC - Dietary Evaluation Malnutrition Findings (Please click <Entered> for more info): Nutritional Asmnt/Malnutrition Start: 09/28/17 19: 16 Text: Status: Complete Freq: Document 09/28/17 19:16 LCHEYDIG (Rec: 09/28/17 19:21 [email or web address]) Nutritional Asmnt/Malnutrition Patient General Information Nutritional Screening Moderate Risk Diagnosis psychosis NOS Pertinent Medical Hx/Surgical Hx DM, hypothyroidism psychosis, hyperlidemidea, asthma Subjective Information Pt seen sleeping in bed at the time of visit, not able to provide nutrition education. Per notes, PO intake 50-75%. Current Diet Order/ Nutrition Support GLORIA, CCHO, low fat, low chelsterol, dairy free, mocha mix with meals Pertinent Medications colace, novolog, synthroid, glucophage, ehragran, protonix , seroquel Pertinent Labs 09/27 Na 133, GLucose 291, A1c 10.7 Nutritional Hx/Data Height 1.47 m Height (Calculated Centimeters) 147.3 Current Weight (lbs) 84.368 kg Weight (Calculated Kilograms) 84.4 Weight (Calculated Grams) 11063.2 [place] Body Weight 96 % [place] Body Weight 193 Body Mass Index (BMI) 38.8 Weight Status Obese GI Symptoms GI Symptoms None Last BM 09/28 Difficult in: None Skin Integrity/Comment: intact Estimated Nutritional Goals BEE in Kcals: Adj wt of IBW Calories/Kcals/Kg 30-35 adj wt 54kg Kcals Calculated 5346-7251 Protein: Adj wt of IBW Protein g/k.2 Protein Calculated 65 Fluid: ml 7033-8928 Nutritional Problem 2. Problem Problem altered nutrition related lab values Etiology hx of DM Signs/Symptoms: GLucose 291, A1c 10.7 1. Problem Problem obesity Etiology possible excessive energy intake Signs/Symptoms: BMI 38.9 Malnutrition Alert Protein-Calorie Malnutrition N/A Is there a minimum of two criteria No selected? Query Text:Check all the applicable criteria. A minimum of two criteria are recommended for diagnosis of either severe or non-severe malnutrition. Intervention/Recommendation Comments 1. Continue with current diet as ordered. 2. Monitor PO intake, wt, labs and skin integrity 3. MD to adjust insulin for optimal glycemic control 4. F/U as moderate risk in 3-5 days, 10/01-10/03 Expected Outcomes/Goals Expected Outcomes/Goals 1. PO intake to meet at least 75% of nutritional needs. 2. Wt stability, skin to remain intact, labs to improve
[2017-10-01] MEDS: Pantoprazole 40 mg EC Tab PO SCH (06:52)
[2017-10-01] MEDS: Levothyroxine 0.075 Mg Tab PO SCH (06:54)
[2017-10-01] MEDS: INSULIN ASPART SLIDING SCALE 100 UNITS/ML UNIT SUBQ SCH ×4 (06:59→20:35)
[2017-10-01] MEDS: Multivitamin Tab PO SCH (08:33)
[2017-10-01] MEDS ORDERED: Haloperidol Lactate 5 mg/mL 1mL Vial ONE (11:33)
[2017-10-01] MEDS ORDERED: Haloperidol Lactate 5 mg/mL 1mL Vial IM ONE (11:35)
--- NOTE | 2017-10-01 22:21 | Internal Medicine Prog Note ---
Internal Medicine Subjective - Subjective Service Date: 10/01/17 Patient seen and examined:: without staff Patient is:: awake, verbal, in bed, confused Per staff patient has:: no adverse event Internal Medicine Objective - Results Result Diagrams: 09/27/17 18:20 09/27/17 18:20 Recent Labs: Laboratory Last Values WBC 11.5 Th/cmm (4.8-10.8) H D 09/27/17 18:20 RBC 4.43 Mil/cmm (3.80-5.10) 09/27/17 18:20 Hgb 12.4 gm/dL (12-16) 09/27/17 18:20 Hct 37.7 % (41.0-60) L 09/27/17 18:20 MCV 85.3 fl (81-100) 09/27/17 18:20 MCH 28.1 pg (27.0-31.0) 09/27/17 18:20 MCHC Differential 32.9 pg (28.0-36.0) 09/27/17 18:20 RDW 12.8 % (11.5-20.0) 09/27/17 18:20 Plt Count 415 Th/cmm (150-400) H D 09/27/17 18:20 MPV 7.5 fl 09/27/17 18:20 Neutrophils % 65.6 % (40.0-80.0) 09/27/17 18:20 Lymphocytes % 24.0 % (20.0-50.0) 09/27/17 18:20 Monocytes % 6.8 % (2.0-10.0) 09/27/17 18:20 Eosinophils % 2.8 % (0.0-5.0) 09/27/17 18:20 Basophils % 0.8 % (0.0-2.0) 09/27/17 18:20 Sodium 133 mEq/L (136-145) L 09/27/17 18:20 Potassium 3.6 mEq/L (3.5-5.1) 09/27/17 18:20 Chloride 98 mEq/L (98-107) 09/27/17 18:20 Carbon Dioxide 27.3 mEq/L (21.0-31.0) 09/27/17 18:20 Anion Gap 11.3 (7.0-16.0) 09/27/17 18:20 BUN 13 mg/dL (7-25) 09/27/17 18:20 Creatinine 0.9 mg/dL (0.6-1.2) 09/27/17 18:20 Est GFR ( Amer) > 60.0 ml/min (>90) 09/27/17 18:20 Est GFR (Non-Af Amer) > 60.0 ml/min 09/27/17 18:20 BUN/Creatinine Ratio 14.4 09/27/17 18:20 Glucose 291 mg/dL (70-105) H 09/27/17 18:20 POC Glucose 235 MG/DL (70 - 105) H 09/29/17 20:24 Hemoglobin A1c % 10.7 % (4.0-6.0) H 09/27/17 18:20 Calcium 9.4 mg/dL (8.6-10.3) 09/27/17 18:20 Total Bilirubin 0.2 mg/dL (0.3-1.0) L 09/27/17 18:20 AST 11 U/L (13-39) L 09/27/17 18:20 ALT 10 U/L (7-52) 09/27/17 18:20 Alkaline Phosphatase 89 U/L (34-104) 09/27/17 18:20 Total Protein 7.8 gm/dL (6.0-8.3) 09/27/17 18:20 Albumin 4.0 gm/dL (3.7-5.3) 09/27/17 18:20 Globulin 3.8 gm/dL 09/27/17 18:20 Albumin/Globulin Ratio 1.1 (1.0-1.8) 09/27/17 18:20 Triglycerides 126 mg/dL (<150) 09/27/17 18:20 Cholesterol 231 mg/dL (<200) H 09/27/17 18:20 LDL Cholesterol Direct 182 mg/dL (75-193) 09/27/17 18:20 HDL Cholesterol 51 mg/dL (23-92) 09/27/17 18:20 TSH 0.37 uIU/ml (0.34-5.60) 09/27/17 18:20 Serum , Qual NEGATIVE (NEGATIVE) 09/27/17 18:20 Urine Source CLEAN C 01/09/18 19:40 Urine Color YELLOW 09/27/17 19:40 Urine Clarity CLEAR (CLEAR) 09/27/17 19:40 Urine pH 6.0 (4.6 - 8.0) 09/27/17 19:40 Ur Specific [place] 1.010 (1.005-1.030) 09/27/17 19:40 Urine Protein NEGATIVE mg/dL (NEGATIVE) 09/27/17 19:40 Urine Glucose (UA) >=1000 mg/dL (NEGATIVE) H 09/27/17 19:40 Urine Ketones NEGATIVE mg/dL (NEGATIVE) 09/27/17 19:40 Urine Blood NEGATIVE (NEGATIVE) 09/27/17 19:40 Urine Nitrate NEGATIVE (NEGATIVE) 09/27/17 19:40 Urine Bilirubin NEGATIVE (NEGATIVE) 09/27/17 19:40 Urine Urobilinogen 0.2 E.U./dL (0.2 - 1.0) 09/27/17 19:40 Ur Leukocyte Esterase NEGATIVE (NEGATIVE) 09/27/17 19:40 Urine RBC NONE SEEN /hpf (0-5) 09/27/17 19:40 Urine WBC NONE SEEN /hpf (0-5) 09/27/17 19:40 Ur Epithelial Cells NONE SEEN /lpf (FEW) 09/27/17 19:40 Urine Bacteria NONE SEEN /hpf (NONE SEEN) 09/27/17 19:40 Salicylates < 25.0 mg/L (30.0-100.0) L 09/27/17 18:20 Urine Opiates Screen NEGATIVE (NEGATIVE) 09/27/17 19:40 Urine Methadone Screen NEGATIVE (NEGATIVE) 09/27/17 19:40 Acetaminophen < 10.0 ug/mL (10.0-30.0) L 09/27/17 18:20 Ur Barbiturates Screen NEGATIVE (NEGATIVE) 09/27/17 19:40 Ur Tricyclics Screen NEGATIVE (NEGATIVE) 09/27/17 19:40 Ur Phencyclidine Scrn NEGATIVE (NEGATIVE) 09/27/17 19:40 Amphetamines Screen NEGATIVE (NEGATIVE) 09/27/17 19:40 U Methamphetamines Scrn NEGATIVE (NEGATIVE) 09/27/17 19:40 U Benzodiazepines Scrn NEGATIVE (NEGATIVE) 09/27/17 19:40 U Cocaine Metab Screen NEGATIVE (NEGATIVE) 09/27/17 19:40 U Cannabinoids Screen NEGATIVE (NEGATIVE) 09/27/17 19:40 Ethyl Alcohol < 10 mg/dL (0-10) 09/27/17 18:20 RPR NONREACTIVE (NONREACTIVE) 09/27/17 18:20 - Physical Exam Vitals and I&O: Vital Signs Temp 98.3 F 10/01/17 21:13 Pulse 81 10/01/17 21:13 Resp 22 10/01/17 21:13 BP 112/54 10/01/17 21:13 Pulse Ox 97 10/01/17 21:13 Intake & Output 10/01/17 10/01/17 10/02/17 06:59 18:59 06:59 Intake Total 240 1200 Balance 240 1200 Intake: Oral 240 1200 Other: # Voids 1 3 Active Medications: Current Medications Acetaminophen (Tylenol) 650 mg PO Q4HR PRN PRN Reason: Mild Pain / Temp above 100 Stop: 11/26/17 21:55 Albuterol Sulfate (Albuterol 2.5mg/3ml Neb Ud) 2.5 mg HHN Q6H PRN PRN Reason: Bronchospasm Stop: 11/26/17 21:55 Docusate Sodium (Colace) 100 mg PO BID [facility] Stop: 11/27/17 08:59 Last Admin: 10/01/17 18:00 Dose: 100 mg Gabapentin (Neurontin) 300 mg PO TID [facility] Stop: 11/27/17 08:59 Last Admin: 10/01/17 20:34 Dose: 300 mg Insulin Aspart (Novolog Insulin Sliding Scale) 0 units SUBQ ACHS [facility] PRN Reason: Protocol Stop: 11/29/17 07:29 Last Admin: 10/01/17 20:35 Dose: 6 units Ipratropium [place] (Atrovent Neb 0.5mg/2.5ml) 0.5 mg HHN Q6HRT PRN PRN Reason: Bronchospasm Stop: 11/26/17 21:55 Levothyroxine Sodium (Synthroid) 0.075 mg PO QDAC [facility] Stop: 11/27/17 07:29 Last Admin: 10/01/17 06:54 Dose: 0.075 mg Lorazepam (Ativan) 0.5 mg PO Q4HR PRN; Protocol PRN Reason: Anxiety Stop: 11/26/17 21:55 Magnesium Hydroxide (Milk Of Magnesia) 30 ml PO DAILY PRN PRN Reason: Constipation Stop: 11/26/17 21:55 Metformin HCl (Glucophage) 1,000 mg PO BIDWM [facility] Stop: 11/27/17 07:59 Last Admin: 10/01/17 18:03 Dose: 1,000 mg Multivitamins/Vitamin C (Theragran) 1 tab PO DAILY [facility] Stop: 11/27/17 08:59 Last Admin: 10/01/17 08:33 Dose: Not Given Mupirocin (Bactroban Oint) 1 appl NS BID [facility] Stop: 10/04/17 17:01 Last Admin: 10/01/17 17:37 Dose: Not Given Pantoprazole Sodium (Protonix) 40 mg PO QDAC [facility] Stop: 11/27/17 07:29 Last Admin: 10/01/17 06:52 Dose: 40 mg Quetiapine Fumarate (Seroquel) 100 mg PO HS [facility] PRN Reason: Protocol Stop: 11/27/17 20:59 Last Admin: 10/01/17 20:34 Dose: 100 mg Quetiapine Fumarate (Seroquel) 25 mg PO BID [facility] PRN Reason: Protocol Stop: 11/27/17 08:59 Last Admin: 10/01/17 18:00 Dose: 25 mg General: demented HEENT: PERRLA, anicteric sclerae, throat clear Neck: No thyromegaly Lungs: CTAB Cardiovascular: RRR, Normal S1, Normal S2, without murmur Abdomen: soft, non-tender, non-distended Neurological: no change Internal Medicine Assmt/Plan - Assessment Assessment: 1.DM. 2.HYPERLIPIDEMIA. 3.HYPOTHYROIDISM. 4.DEMENTIA. - Plan Plan: CONTINUE ON CURRENT MEDICATION AND DIET. Nutritional Asmnt/Malnutr-PDOC - Dietary Evaluation Malnutrition Findings (Please click <Entered> for more info): Nutritional Asmnt/Malnutrition Start: 09/28/17 19: 16 Text: Status: Complete Freq: Document 09/28/17 19:16 LCHEYDIG (Rec: 09/28/17 19:21 LCHEYDIG [email or web address]) Nutritional Asmnt/Malnutrition Patient General Information Nutritional Screening Moderate Risk Diagnosis psychosis NOS Pertinent Medical Hx/Surgical Hx DM, hypothyroidism psychosis, hyperlidemidea, asthma Subjective Information Pt seen sleeping in bed at the time of visit, not able to provide nutrition education. Per notes, PO intake 50-75%. Current Diet Order/ Nutrition Support GLORIA, CCHO, low fat, low chelsterol, dairy free, mocha mix with meals Pertinent Medications colace, novolog, synthroid, glucophage, ehragran, protonix , seroquel Pertinent Labs 09/27 Na 133, GLucose 291, A1c 10.7 Nutritional Hx/Data Height 1.47 m Height (Calculated Centimeters) 147.3 Current Weight (lbs) 84.368 kg Weight (Calculated Kilograms) 84.4 Weight (Calculated Grams) 87715.2 [place] Body Weight 96 % [place] Body Weight 193 Body Mass Index (BMI) 38.8 Weight Status Obese GI Symptoms GI Symptoms None Last BM 09/28 Difficult in: None Skin Integrity/Comment: intact Estimated Nutritional Goals BEE in Kcals: Adj wt of IBW Calories/Kcals/Kg 30-35 adj wt 54kg Kcals Calculated 9679-0682 Protein: Adj wt of IBW Protein g/k.2 Protein Calculated 65 Fluid: ml 3874-1404 Nutritional Problem 2. Problem Problem altered nutrition related lab values Etiology hx of DM Signs/Symptoms: GLucose 291, A1c 10.7 1. Problem Problem obesity Etiology possible excessive energy intake Signs/Symptoms: BMI 38.9 Malnutrition Alert Protein-Calorie Malnutrition N/A Is there a minimum of two criteria No selected? Query Text:Check all the applicable criteria. A minimum of two criteria are recommended for diagnosis of either severe or non-severe malnutrition. Intervention/Recommendation Comments 1. Continue with current diet as ordered. 2. Monitor PO intake, wt, labs and skin integrity 3. MD to adjust insulin for optimal glycemic control 4. F/U as moderate risk in 3-5 days, 10/01-10/03 Expected Outcomes/Goals Expected Outcomes/Goals 1. PO intake to meet at least 75% of nutritional needs. 2. Wt stability, skin to remain intact, labs to improve
[2017-10-02] MEDS: Levothyroxine 0.075 Mg Tab PO SCH (06:45)
[2017-10-02] MEDS: INSULIN ASPART SLIDING SCALE 100 UNITS/ML UNIT SUBQ SCH ×4 (06:45→20:29)
[2017-10-02] MEDS: Pantoprazole 40 mg EC Tab PO SCH (06:45)
[2017-10-02] MEDS: Ipratropium Neb 0.5 mg/2.5 mL UD HHN PRN ×3 (08:14→23:02)
[2017-10-02] MEDS: Albuterol Nebulizer 2.5mg/3mL HHN PRN ×3 (08:14→23:02)
[2017-10-02] MEDS: Multivitamin Tab PO SCH (10:02)
--- NOTE | 2017-10-02 14:43 | Progress Notes ---
DATE: SUBJECTIVE: The patient seen, chart reviewed, and discussed with staff. The patient continues to be quite agitated, irritable, restless, and paranoid. Continues to require multiple redirections, and has not been compliant with medications despite urging and psychoeducation. However, she has not been reported to be assaulted. PLAN: The patient continues to be actively psychotic, unpredictable, and restless. It was felt that she will require treatment. We will monitor the patient on a daily basis for response to medications, continue to encourage the patient to cooperate with treatment. We will work closely with psych social worker regarding the patient's placement upon discharge. JOB# [id number]
--- NOTE | 2017-10-02 18:51 | Progress Notes ---
DATE: 09/30/2017 SUBJECTIVE: Chart reviewed and the patient interviewed. Also discussed the patient's condition with the staff and reviewed records and labs. The patient is still depressed and withdrawn. The patient also is guarded and interacting minimally with others. The patient also is still feeling hopeless and helpless. Otherwise, the patient is continued to comply with taking her medications with no side effects of medications. She is still expressing her anger and seems to be paranoid about staff in [facility] where she was living, but at the same time, "I love them." ASSESSMENT: The patient is still psychotic. TREATMENT PLAN: Continue to monitor her behavior and her condition closely. Also, continue to work on her delusion and psychosis and also ineffective coping. Also, continue to monitor psychotropic medications. [facility]# [id number]
--- NOTE | 2017-10-02 19:13 | Internal Medicine Prog Note ---
Internal Medicine Subjective - Subjective Service Date: 10/02/17 Patient seen and examined:: with staff Patient is:: awake, verbal, in bed, confused Per staff patient has:: no adverse event Internal Medicine Objective - Results Result Diagrams: 09/27/17 18:20 09/27/17 18:20 Recent Labs: Laboratory Last Values WBC 11.5 Th/cmm (4.8-10.8) H D 09/27/17 18:20 RBC 4.43 Mil/cmm (3.80-5.10) 09/27/17 18:20 Hgb 12.4 gm/dL (12-16) 09/27/17 18:20 Hct 37.7 % (41.0-60) L 09/27/17 18:20 MCV 85.3 fl (81-100) 09/27/17 18:20 MCH 28.1 pg (27.0-31.0) 09/27/17 18:20 MCHC Differential 32.9 pg (28.0-36.0) 09/27/17 18:20 RDW 12.8 % (11.5-20.0) 09/27/17 18:20 Plt Count 415 Th/cmm (150-400) H D 09/27/17 18:20 MPV 7.5 fl 09/27/17 18:20 Neutrophils % 65.6 % (40.0-80.0) 09/27/17 18:20 Lymphocytes % 24.0 % (20.0-50.0) 09/27/17 18:20 Monocytes % 6.8 % (2.0-10.0) 09/27/17 18:20 Eosinophils % 2.8 % (0.0-5.0) 09/27/17 18:20 Basophils % 0.8 % (0.0-2.0) 09/27/17 18:20 Sodium 133 mEq/L (136-145) L 09/27/17 18:20 Potassium 3.6 mEq/L (3.5-5.1) 09/27/17 18:20 Chloride 98 mEq/L (98-107) 09/27/17 18:20 Carbon Dioxide 27.3 mEq/L (21.0-31.0) 09/27/17 18:20 Anion Gap 11.3 (7.0-16.0) 09/27/17 18:20 BUN 13 mg/dL (7-25) 09/27/17 18:20 Creatinine 0.9 mg/dL (0.6-1.2) 09/27/17 18:20 Est GFR ( Amer) > 60.0 ml/min (>90) 09/27/17 18:20 Est GFR (Non-Af Amer) > 60.0 ml/min 09/27/17 18:20 BUN/Creatinine Ratio 14.4 09/27/17 18:20 Glucose 291 mg/dL (70-105) H 09/27/17 18:20 POC Glucose 339 MG/DL (70 - 105) H 10/02/17 16:50 Hemoglobin A1c % 10.7 % (4.0-6.0) H 09/27/17 18:20 Calcium 9.4 mg/dL (8.6-10.3) 09/27/17 18:20 Total Bilirubin 0.2 mg/dL (0.3-1.0) L 09/27/17 18:20 AST 11 U/L (13-39) L 09/27/17 18:20 ALT 10 U/L (7-52) 09/27/17 18:20 Alkaline Phosphatase 89 U/L (34-104) 09/27/17 18:20 Total Protein 7.8 gm/dL (6.0-8.3) 09/27/17 18:20 Albumin 4.0 gm/dL (3.7-5.3) 09/27/17 18:20 Globulin 3.8 gm/dL 09/27/17 18:20 Albumin/Globulin Ratio 1.1 (1.0-1.8) 09/27/17 18:20 Triglycerides 126 mg/dL (<150) 09/27/17 18:20 Cholesterol 231 mg/dL (<200) H 09/27/17 18:20 LDL Cholesterol Direct 182 mg/dL (75-193) 09/27/17 18:20 HDL Cholesterol 51 mg/dL (23-92) 09/27/17 18:20 TSH 0.37 uIU/ml (0.34-5.60) 09/27/17 18:20 Serum , Qual NEGATIVE (NEGATIVE) 09/27/17 18:20 Urine Source CLEAN C 01/09/18 19:40 Urine Color YELLOW 09/27/17 19:40 Urine Clarity CLEAR (CLEAR) 09/27/17 19:40 Urine pH 6.0 (4.6 - 8.0) 09/27/17 19:40 Ur Specific [place] 1.010 (1.005-1.030) 09/27/17 19:40 Urine Protein NEGATIVE mg/dL (NEGATIVE) 09/27/17 19:40 Urine Glucose (UA) >=1000 mg/dL (NEGATIVE) H 09/27/17 19:40 Urine Ketones NEGATIVE mg/dL (NEGATIVE) 09/27/17 19:40 Urine Blood NEGATIVE (NEGATIVE) 09/27/17 19:40 Urine Nitrate NEGATIVE (NEGATIVE) 09/27/17 19:40 Urine Bilirubin NEGATIVE (NEGATIVE) 09/27/17 19:40 Urine Urobilinogen 0.2 E.U./dL (0.2 - 1.0) 09/27/17 19:40 Ur Leukocyte Esterase NEGATIVE (NEGATIVE) 09/27/17 19:40 Urine RBC NONE SEEN /hpf (0-5) 09/27/17 19:40 Urine WBC NONE SEEN /hpf (0-5) 09/27/17 19:40 Ur Epithelial Cells NONE SEEN /lpf (FEW) 09/27/17 19:40 Urine Bacteria NONE SEEN /hpf (NONE SEEN) 09/27/17 19:40 Salicylates < 25.0 mg/L (30.0-100.0) L 09/27/17 18:20 Urine Opiates Screen NEGATIVE (NEGATIVE) 09/27/17 19:40 Urine Methadone Screen NEGATIVE (NEGATIVE) 09/27/17 19:40 Acetaminophen < 10.0 ug/mL (10.0-30.0) L 09/27/17 18:20 Ur Barbiturates Screen NEGATIVE (NEGATIVE) 09/27/17 19:40 Ur Tricyclics Screen NEGATIVE (NEGATIVE) 09/27/17 19:40 Ur Phencyclidine Scrn NEGATIVE (NEGATIVE) 09/27/17 19:40 Amphetamines Screen NEGATIVE (NEGATIVE) 09/27/17 19:40 U Methamphetamines Scrn NEGATIVE (NEGATIVE) 09/27/17 19:40 U Benzodiazepines Scrn NEGATIVE (NEGATIVE) 09/27/17 19:40 U Cocaine Metab Screen NEGATIVE (NEGATIVE) 09/27/17 19:40 U Cannabinoids Screen NEGATIVE (NEGATIVE) 09/27/17 19:40 Ethyl Alcohol < 10 mg/dL (0-10) 09/27/17 18:20 RPR NONREACTIVE (NONREACTIVE) 09/27/17 18:20 - Physical Exam Vitals and I&O: Vital Signs Temp 98.3 F 10/01/17 21:13 Pulse 94 10/02/17 14:42 Resp 16 10/02/17 14:42 BP 112/54 10/01/17 21:13 Pulse Ox 99 10/02/17 14:42 Intake & Output 10/02/17 10/02/17 10/03/17 06:59 18:59 06:59 Intake Total 120 900 Balance 120 900 Intake: Oral 120 900 Other: # Voids 3 3 # Bowel Movements 1 Active Medications: Current Medications Acetaminophen (Tylenol) 650 mg PO Q4HR PRN PRN Reason: Mild Pain / Temp above 100 Stop: 11/26/17 21:55 Albuterol Sulfate (Albuterol 2.5mg/3ml Neb Ud) 2.5 mg HHN Q6H PRN PRN Reason: Bronchospasm Stop: 11/26/17 21:55 Last Admin: 10/02/17 14:32 Dose: 2.5 mg Docusate Sodium (Colace) 100 mg PO BID [facility] Stop: 11/27/17 08:59 Last Admin: 10/02/17 17:08 Dose: 100 mg Gabapentin (Neurontin) 300 mg PO TID [facility] Stop: 11/27/17 08:59 Last Admin: 10/02/17 17:08 Dose: 300 mg Insulin Aspart (Novolog Insulin Sliding Scale) 0 units SUBQ ACHS [facility] PRN Reason: Protocol Stop: 11/29/17 07:29 Last Admin: 10/02/17 17:09 Dose: 8 units Ipratropium [place] (Atrovent Neb 0.5mg/2.5ml) 0.5 mg HHN Q6HRT PRN PRN Reason: Bronchospasm Stop: 11/26/17 21:55 Last Admin: 10/02/17 14:32 Dose: 0.5 mg Levothyroxine Sodium (Synthroid) 0.075 mg PO QDAC [facility] Stop: 11/27/17 07:29 Last Admin: 10/02/17 06:45 Dose: 0.075 mg Lorazepam (Ativan) 0.5 mg PO Q4HR PRN; Protocol PRN Reason: Anxiety Stop: 11/26/17 21:55 Magnesium Hydroxide (Milk Of Magnesia) 30 ml PO DAILY PRN PRN Reason: Constipation Stop: 11/26/17 21:55 Metformin HCl (Glucophage) 1,000 mg PO BIDWM [facility] Stop: 11/27/17 07:59 Last Admin: 10/02/17 17:08 Dose: 1,000 mg Multivitamins/Vitamin C (Theragran) 1 tab PO DAILY [facility] Stop: 11/27/17 08:59 Last Admin: 10/02/17 10:02 Dose: Not Given Mupirocin (Bactroban Oint) 1 appl NS BID [facility] Stop: 10/04/17 17:01 Last Admin: 10/02/17 17:15 Dose: Not Given Pantoprazole Sodium (Protonix) 40 mg PO QDAC [facility] Stop: 11/27/17 07:29 Last Admin: 10/02/17 06:45 Dose: 40 mg Quetiapine Fumarate (Seroquel) 100 mg PO HS [facility] PRN Reason: Protocol Stop: 11/27/17 20:59 Last Admin: 10/01/17 20:34 Dose: 100 mg Quetiapine Fumarate (Seroquel) 25 mg PO BID [facility] PRN Reason: Protocol Stop: 11/27/17 08:59 Last Admin: 10/02/17 17:08 Dose: 25 mg General: demented HEENT: PERRLA, anicteric sclerae, throat clear Neck: No thyromegaly Lungs: CTAB Cardiovascular: RRR, Normal S1, Normal S2, without murmur Abdomen: soft, non-tender, non-distended Neurological: no change Internal Medicine Assmt/Plan - Assessment Assessment: 1.DM. 2.HYPERLIPIDEMIA. 3.HYPOTHYROIDISM. 4.DEMENTIA. - Plan Plan: CONTINUE ON CURRENT MEDICATION AND DIET. Nutritional Asmnt/Malnutr-PDOC - Dietary Evaluation Malnutrition Findings (Please click <Entered> for more info): Nutritional Asmnt/Malnutrition Start: 09/28/17 19: 16 Text: Status: Complete Freq: Document 09/28/17 19:16 [email or web address] (Rec: 09/28/17 19:21 [facility]YDI [email or web address]) Nutritional Asmnt/Malnutrition Patient General Information Nutritional Screening Moderate Risk Diagnosis psychosis NOS Pertinent Medical Hx/Surgical Hx DM, hypothyroidism psychosis, hyperlidemidea, asthma Subjective Information Pt seen sleeping in bed at the time of visit, not able to provide nutrition education. Per notes, PO intake 50-75%. Current Diet Order/ Nutrition Support GLORIA, CCHO, low fat, low chelsterol, dairy free, mocha mix with meals Pertinent Medications colace, novolog, synthroid, glucophage, ehragran, protonix , seroquel Pertinent Labs 09/27 Na 133, GLucose 291, A1c 10.7 Nutritional Hx/Data Height 1.47 m Height (Calculated Centimeters) 147.3 Current Weight (lbs) 84.368 kg Weight (Calculated Kilograms) 84.4 Weight (Calculated Grams) 09623.2 [place] Body Weight 96 % [place] Body Weight 193 Body Mass Index (BMI) 38.8 Weight Status Obese GI Symptoms GI Symptoms None Last BM 09/28 Difficult in: None Skin Integrity/Comment: intact Estimated Nutritional Goals BEE in Kcals: Adj wt of IBW Calories/Kcals/Kg 30-35 adj wt 54kg Kcals Calculated 7961-7307 Protein: Adj wt of IBW Protein g/k.2 Protein Calculated 65 Fluid: ml 9122-5112 Nutritional Problem 2. Problem Problem altered nutrition related lab values Etiology hx of DM Signs/Symptoms: GLucose 291, A1c 10.7 1. Problem Problem obesity Etiology possible excessive energy intake Signs/Symptoms: BMI 38.9 Malnutrition Alert Protein-Calorie Malnutrition N/A Is there a minimum of two criteria No selected? Query Text:Check all the applicable criteria. A minimum of two criteria are recommended for diagnosis of either severe or non-severe malnutrition. Intervention/Recommendation Comments 1. Continue with current diet as ordered. 2. Monitor PO intake, wt, labs and skin integrity 3. MD to adjust insulin for optimal glycemic control 4. F/U as moderate risk in 3-5 days, 10/01-10/03 Expected Outcomes/Goals Expected Outcomes/Goals 1. PO intake to meet at least 75% of nutritional needs. 2. Wt stability, skin to remain intact, labs to improve
[2017-10-03] MEDS: Levothyroxine 0.075 Mg Tab PO SCH (06:58)
[2017-10-03] MEDS: Pantoprazole 40 mg EC Tab PO SCH (06:58)
[2017-10-03] MEDS: INSULIN ASPART SLIDING SCALE 100 UNITS/ML UNIT SUBQ SCH ×4 (07:01→22:00)
[2017-10-03] MEDS: Multivitamin Tab PO SCH (09:18)
--- NOTE | 2017-10-03 16:14 | Progress Notes ---
DATE: 10/02/2017 SUBJECTIVE: The patient was seen, chart reviewed, and discussed with staff. The patient continues to be very irritable, restless, and paranoid. She has been refusing medications, but appetite and sleep have been consistent. PLAN: The patient continues to have a very poor insight, irritable and agitated, so that she will require inpatient care center treatment. We will monitor patient on a daily basis for response to treatment and titrate meds as needed. [facility]# [id number]
--- NOTE | 2017-10-03 21:12 | Progress Notes ---
DATE: 10/03/[address] Hollingsworth. Case was discussed with staff of the patient, reviewed records. This is a 57-year-old female who was admitted on 09/27/2017. She was transferred to [facility] because of increasing agitation, trying to leave the facility. She was breaking windows. She was acting bizarre. She was unable to follow direction, getting easily agitated. Staff keep trying to redirect her, suspicious paranoia. The patient was recently discharged from the hospital because of similar episodes. Staff report that she is semi-compliant with the medication and continues to have anger outburst, continues to use foul language, continues to have poor insight, unable to make safe plan for self-care. She is unpredictable and impulsive. When I talked to her, she believed Dr. Hollingsworth told her to be discharged today, which is not in the case. She has been on Seroquel 100 mg at bedtime and 225 mg twice a day with no side effects, no sedation, no nausea, no extrapyramidal symptoms. I will be increasing her Seroquel during the day to 250 mg twice a day. She is described also as trying to manipulate the staff, easily agitated and we will continue outpatient group therapy, milieu therapy, and adjust the medication as needed. JOB# [id number]
--- NOTE | 2017-10-03 21:56 | Internal Medicine Prog Note ---
Internal Medicine Subjective - Subjective Service Date: 10/03/17 Patient seen and examined:: with staff (SHE FEELS BETTER) Patient is:: awake, verbal, in bed, confused Per staff patient has:: no adverse event Internal Medicine Objective - Results Result Diagrams: 09/27/17 18:20 09/27/17 18:20 Recent Labs: Laboratory Last Values WBC 11.5 Th/cmm (4.8-10.8) H D 09/27/17 18:20 RBC 4.43 Mil/cmm (3.80-5.10) 09/27/17 18:20 Hgb 12.4 gm/dL (12-16) 09/27/17 18:20 Hct 37.7 % (41.0-60) L 09/27/17 18:20 MCV 85.3 fl (81-100) 09/27/17 18:20 MCH 28.1 pg (27.0-31.0) 09/27/17 18: MCHC Differential 32.9 pg (28.0-36.0) 09/27/17 18:20 RDW 12.8 % (11.5-20.0) 09/27/17 18:20 Plt Count 415 Th/cmm (150-400) H D 09/27/17 18:20 MPV 7.5 fl 09/27/17 18:20 Neutrophils % 65.6 % (40.0-80.0) 09/27/17 18:20 Lymphocytes % 24.0 % (20.0-50.0) 09/27/17 18:20 Monocytes % 6.8 % (2.0-10.0) 09/27/17 18:20 Eosinophils % 2.8 % (0.0-5.0) 09/27/17 18:20 Basophils % 0.8 % (0.0-2.0) 09/27/17 18:20 Sodium 133 mEq/L (136-145) L 09/27/17 18:20 Potassium 3.6 mEq/L (3.5-5.1) 09/27/17 18:20 Chloride 98 mEq/L (98-107) 09/27/17 18:20 Carbon Dioxide 27.3 mEq/L (21.0-31.0) 09/27/17 18:20 Anion Gap 11.3 (7.0-16.0) 09/27/17 18:20 BUN 13 mg/dL (7-25) 09/27/17 18:20 Creatinine 0.9 mg/dL (0.6-1.2) 09/27/17 18:20 Est GFR ( Amer) > 60.0 ml/min (>90) 09/27/17 18:20 Est GFR (Non-Af Amer) > 60.0 ml/min 09/27/17 18:20 BUN/Creatinine Ratio 14.4 09/27/17 18:20 Glucose 291 mg/dL (70-105) H 09/27/17 18:20 POC Glucose 339 MG/DL (70 - 105) H 10/02/17 16:50 Hemoglobin A1c % 10.7 % (4.0-6.0) H 09/27/17 18:20 Calcium 9.4 mg/dL (8.6-10.3) 09/27/17 18:20 Total Bilirubin 0.2 mg/dL (0.3-1.0) L 09/27/17 18:20 AST 11 U/L (13-39) L 09/27/17 18:20 ALT 10 U/L (7-52) 09/27/17 18:20 Alkaline Phosphatase 89 U/L (34-104) 09/27/17 18:20 Total Protein 7.8 gm/dL (6.0-8.3) 09/27/17 18:20 Albumin 4.0 gm/dL (3.7-5.3) 09/27/17 18:20 Globulin 3.8 gm/dL 09/27/17 18:20 Albumin/Globulin Ratio 1.1 (1.0-1.8) 09/27/17 18:20 Triglycerides 126 mg/dL (<150) 09/27/17 18:20 Cholesterol 231 mg/dL (<200) H 09/27/17 18:20 LDL Cholesterol Direct 182 mg/dL (75-193) 09/27/17 18:20 HDL Cholesterol 51 mg/dL (23-92) 09/27/17 18:20 TSH 0.37 uIU/ml (0.34-5.60) 09/27/17 18:20 Serum , Qual NEGATIVE (NEGATIVE) 09/27/17 18:20 Urine Source CLEAN C 09/27/17 19:40 Urine Color YELLOW 09/27/17 19:40 Urine Clarity CLEAR (CLEAR) 09/27/17 19:40 Urine pH 6.0 (4.6 - 8.0) 09/27/17 19:40 Ur Specific [place] 1.010 (1.005-1.030) 09/27/17 19:40 Urine Protein NEGATIVE mg/dL (NEGATIVE) 09/27/17 19:40 Urine Glucose (UA) >=1000 mg/dL (NEGATIVE) H 09/27/17 19:40 Urine Ketones NEGATIVE mg/dL (NEGATIVE) 09/27/17 19:40 Urine Blood NEGATIVE (NEGATIVE) 09/27/17 19:40 Urine Nitrate NEGATIVE (NEGATIVE) 09/27/17 19:40 Urine Bilirubin NEGATIVE (NEGATIVE) 09/27/17 19:40 Urine Urobilinogen 0.2 E.U./dL (0.2 - 1.0) 09/27/17 19:40 Ur Leukocyte Esterase NEGATIVE (NEGATIVE) 09/27/17 19:40 Urine RBC NONE SEEN /hpf (0-5) 09/27/17 19:40 Urine WBC NONE SEEN /hpf (0-5) 09/27/17 19:40 Ur Epithelial Cells NONE SEEN /lpf (FEW) 09/27/17 19:40 Urine Bacteria NONE SEEN /hpf (NONE SEEN) 09/27/17 19:40 Salicylates < 25.0 mg/L (30.0-100.0) L 09/27/17 18:20 Urine Opiates Screen NEGATIVE (NEGATIVE) 09/27/17 19:40 Urine Methadone Screen NEGATIVE (NEGATIVE) 09/27/17 19:40 Acetaminophen < 10.0 ug/mL (10.0-30.0) L 09/27/17 18:20 Ur Barbiturates Screen NEGATIVE (NEGATIVE) 09/27/17 19:40 Ur Tricyclics Screen NEGATIVE (NEGATIVE) 09/27/17 19:40 Ur Phencyclidine Scrn NEGATIVE (NEGATIVE) 09/27/17 19:40 Amphetamines Screen NEGATIVE (NEGATIVE) 09/27/17 19:40 U Methamphetamines Scrn NEGATIVE (NEGATIVE) 09/27/17 19:40 U Benzodiazepines Scrn NEGATIVE (NEGATIVE) 09/27/17 19:40 U Cocaine Metab Screen NEGATIVE (NEGATIVE) 09/27/17 19:40 U Cannabinoids Screen NEGATIVE (NEGATIVE) 09/27/17 19:40 Ethyl Alcohol < 10 mg/dL (0-10) 09/27/17 18:20 RPR NONREACTIVE (NONREACTIVE) 09/27/17 18:20 - Physical Exam Vitals and I&O: Vital Signs Temp 98.9 F 10/03/17 21:13 Pulse 103 10/03/17 21:13 Resp 20 10/03/17 21:13 BP 141/91 10/03/17 21:13 Pulse Ox 98 10/03/17 21:13 Intake & Output 10/03/17 10/03/17 10/04/17 06:59 18:59 06:59 Intake Total 120 1200 240 Balance 120 1200 240 Intake: Oral 120 1200 240 Other: # Voids 3 3 1 # Bowel Movements 0 1 Stool Characteristics Soft Soft Active Medications: Current Medications Acetaminophen (Tylenol) 650 mg PO Q4HR PRN PRN Reason: Mild Pain / Temp above 100 Stop: 11/26/17 21:55 Albuterol Sulfate (Albuterol 2.5mg/3ml Neb Ud) 2.5 mg HHN Q6H PRN PRN Reason: Bronchospasm Stop: 11/26/17 21:55 Last Admin: 10/02/17 23:02 Dose: 2.5 mg Docusate Sodium (Colace) 100 mg PO BID [facility] Stop: 11/27/17 08:59 Last Admin: 10/03/17 17:40 Dose: 100 mg Gabapentin (Neurontin) 300 mg PO TID [facility] Stop: 11/27/17 08:59 Last Admin: 10/03/17 20:39 Dose: 300 mg Insulin Aspart (Novolog Insulin Sliding Scale) 0 units SUBQ ACHS RODNEY PRN Reason: Protocol Stop: 11/29/17 07:29 Last Admin: 10/03/17 16:21 Dose: Not Given Ipratropium [place] (Atrovent Neb 0.5mg/2.5ml) 0.5 mg HHN Q6HRT PRN PRN Reason: Bronchospasm Stop: 11/26/17 21:55 Last Admin: 10/02/17 23:02 Dose: 0.5 mg Levothyroxine Sodium (Synthroid) 0.075 mg PO QDAC [facility] Stop: 11/27/17 07:29 Last Admin: 10/03/17 06:58 Dose: 0.075 mg Lorazepam (Ativan) 0.5 mg PO Q4HR PRN; Protocol PRN Reason: Anxiety Stop: 11/26/17 21:55 Last Admin: 10/03/17 11:15 Dose: 0.5 mg Magnesium Hydroxide (Milk Of Magnesia) 30 ml PO DAILY PRN PRN Reason: Constipation Stop: 11/26/17 21:55 Metformin HCl (Glucophage) 1,000 mg PO BIDWM [facility] Stop: 11/27/17 07:59 Last Admin: 10/03/17 17:40 Dose: 1,000 mg Multivitamins/Vitamin C (Theragran) 1 tab PO DAILY [facility] Stop: 11/27/17 08:59 Last Admin: 10/03/17 09:18 Dose: 1 tab Mupirocin (Bactroban Oint) 1 appl NS BID [facility] Stop: 10/04/17 17:01 Last Admin: 10/03/17 17:26 Dose: Not Given Pantoprazole Sodium (Protonix) 40 mg PO QDAC [facility] Stop: 11/27/17 07:29 Last Admin: 10/03/17 06:58 Dose: 40 mg Quetiapine Fumarate (Seroquel) 100 mg PO HS RODNEY PRN Reason: Protocol Stop: 11/27/17 20:59 Last Admin: 10/03/17 20:39 Dose: 100 mg Quetiapine Fumarate (Seroquel) 50 mg PO BID [facility] PRN Reason: Protocol Stop: 12/02/17 12:02 Last Admin: 10/03/17 17:30 Dose: 50 mg General: demented HEENT: PERRLA, anicteric sclerae, throat clear Neck: No thyromegaly Lungs: CTAB Cardiovascular: RRR, Normal S1, Normal S2, without murmur Abdomen: soft, non-tender, non-distended Neurological: no change Internal Medicine Assmt/Plan - Assessment Assessment: 1.DM. 2.HYPERLIPIDEMIA. 3.HYPOTHYROIDISM. 4.DEMENTIA. - Plan Plan: CONTINUE ON CURRENT MEDICATION AND DIET. Nutritional Asmnt/Malnutr-PDOC - Dietary Evaluation Malnutrition Findings (Please click <Entered> for more info): Nutritional Asmnt/Malnutrition Start: 09/28/17 19: 16 Text: Status: Complete Freq: Document 09/28/17 19:16 LCHENG (Rec: 09/28/17 19:21 [facility] [id number]) Nutritional Asmnt/Malnutrition Patient General Information Nutritional Screening Moderate Risk Diagnosis psychosis NOS Pertinent Medical Hx/Surgical Hx DM, hypothyroidism psychosis, hyperlidemidea, asthma Subjective Information Pt seen sleeping in bed at the time of visit, not able to provide nutrition education. Per notes, PO intake 50-75%. Current Diet Order/ Nutrition Support GLORIA, CCHO, low fat, low chelsterol, dairy free, mocha mix with meals Pertinent Medications colace, novolog, synthroid, glucophage, ehragran, protonix , seroquel Pertinent Labs 09/27 Na 133, GLucose 291, A1c 10.7 Nutritional Hx/Data Height 1.47 m Height (Calculated Centimeters) 147.3 Current Weight (lbs) 84.368 kg Weight (Calculated Kilograms) 84.4 Weight (Calculated Grams) 51731.2 [place] Body Weight 96 % [place] Body Weight 193 Body Mass Index (BMI) 38.8 Weight Status Obese GI Symptoms GI Symptoms None Last BM 09/28 Difficult in: None Skin Integrity/Comment: intact Estimated Nutritional Goals BEE in Kcals: Adj wt of IBW Calories/Kcals/Kg 30-35 adj wt 54kg Kcals Calculated 6553-4365 Protein: Adj wt of IBW Protein g/k.2 Protein Calculated 65 Fluid: ml 1533-4239 Nutritional Problem 2. Problem Problem altered nutrition related lab values Etiology hx of DM Signs/Symptoms: GLucose 291, A1c 10.7 1. Problem Problem obesity Etiology possible excessive energy intake Signs/Symptoms: BMI 38.9 Malnutrition Alert Protein-Calorie Malnutrition N/A Is there a minimum of two criteria No selected? Query Text:Check all the applicable criteria. A minimum of two criteria are recommended for diagnosis of either severe or non-severe malnutrition. Intervention/Recommendation Comments 1. Continue with current diet as ordered. 2. Monitor PO intake, wt, labs and skin integrity 3. MD to adjust insulin for optimal glycemic control 4. F/U as moderate risk in 3-5 days, 10/01-10/03 Expected Outcomes/Goals Expected Outcomes/Goals 1. PO intake to meet at least 75% of nutritional needs. 2. Wt stability, skin to remain intact, labs to improve
[2017-10-03] MEDS: Ipratropium Neb 0.5 mg/2.5 mL UD HHN PRN (22:54)
[2017-10-03] MEDS: Albuterol Nebulizer 2.5mg/3mL HHN PRN (22:54)
[2017-10-04] MEDS: Levothyroxine 0.075 Mg Tab PO SCH (06:30)
[2017-10-04] MEDS: Pantoprazole 40 mg EC Tab PO SCH (06:30)
[2017-10-04] MEDS: INSULIN ASPART SLIDING SCALE 100 UNITS/ML UNIT SUBQ SCH ×4 (06:31→21:57)
[2017-10-04] MEDS: Multivitamin Tab PO SCH (09:39)
--- NOTE | 2017-10-04 17:29 | Progress Notes ---
DATE: 10/04/2017 Case was discussed with staff of the patient, reviewed records. The patient continues to be unpredictable, impulsive, labile, continues to be demanding. Continues to have poor insight. Continues to have episodes of agitation. Continues to be acting bizarre, demanding, unpredictable, impulsive, needing redirection. I did increase her Seroquel dose yesterday with no side effects, no sedation, no nausea, no extrapyramidal symptoms. We will continue outpatient group therapy, milieu therapy, and adjust the medication as needed. JOB# [id number]
--- NOTE | 2017-10-04 19:44 | Internal Medicine Prog Note ---
Internal Medicine Subjective - Subjective Service Date: 10/04/17 Patient seen and examined:: with staff (SHE FEELS BETTER) Patient is:: awake, verbal, in bed, confused Per staff patient has:: no adverse event Internal Medicine Objective - Results Result Diagrams: 09/27/17 18:20 09/27/17 18:20 Recent Labs: Laboratory Last Values WBC 11.5 Th/cmm (4.8-10.8) H D 09/27/17 18:20 RBC 4.43 Mil/cmm (3.80-5.10) 09/27/17 18:20 Hgb 12.4 gm/dL (12-16) 09/27/17 18:20 Hct 37.7 % (41.0-60) L 09/27/17 18:20 MCV 85.3 fl (81-100) 09/27/17 18:20 MCH 28.1 pg (27.0-31.0) 09/27/17 18:20 MCHC Differential 32.9 pg (28.0-36.0) 09/27/17 18:20 RDW 12.8 % (11.5-20.0) 09/27/17 18:20 Plt Count 415 Th/cmm (150-400) H D 09/27/17 18:20 MPV 7.5 fl 09/27/17 18:20 Neutrophils % 65.6 % (40.0-80.0) 09/27/17 18:20 Lymphocytes % 24.0 % (20.0-50.0) 09/27/17 18:20 Monocytes % 6.8 % (2.0-10.0) 09/27/17 18:20 Eosinophils % 2.8 % (0.0-5.0) 09/27/17 18:20 Basophils % 0.8 % (0.0-2.0) 09/27/17 18:20 Sodium 133 mEq/L (136-145) L 09/27/17 18:20 Potassium 3.6 mEq/L (3.5-5.1) 09/27/17 18:20 Chloride 98 mEq/L (98-107) 09/27/17 18:20 Carbon Dioxide 27.3 mEq/L (21.0-31.0) 09/27/17 18:20 Anion Gap 11.3 (7.0-16.0) 09/27/17 18:20 BUN 13 mg/dL (7-25) 09/27/17 18:20 Creatinine 0.9 mg/dL (0.6-1.2) 09/27/17 18:20 Est GFR ( Amer) > 60.0 ml/min (>90) 09/27/17 18:20 Est GFR (Non-Af Amer) > 60.0 ml/min 09/27/17 18:20 BUN/Creatinine Ratio 14.4 09/27/17 18:20 Glucose 291 mg/dL (70-105) H 09/27/17 18:20 POC Glucose 233 MG/DL (70 - 105) H 10/03/17 22:05 Hemoglobin A1c % 10.7 % (4.0-6.0) H 09/27/17 18:20 Calcium 9.4 mg/dL (8.6-10.3) 09/27/17 18:20 Total Bilirubin 0.2 mg/dL (0.3-1.0) L 09/27/17 18:20 AST 11 U/L (13-39) L 09/27/17 18:20 ALT 10 U/L (7-52) 09/27/17 18:20 Alkaline Phosphatase 89 U/L (34-104) 09/27/17 18:20 Total Protein 7.8 gm/dL (6.0-8.3) 09/27/17 18:20 Albumin 4.0 gm/dL (3.7-5.3) 09/27/17 18:20 Globulin 3.8 gm/dL 09/27/17 18:20 Albumin/Globulin Ratio 1.1 (1.0-1.8) 09/27/17 18:20 Triglycerides 126 mg/dL (<150) 09/27/17 18:20 Cholesterol 231 mg/dL (<200) H 09/27/17 18:20 LDL Cholesterol Direct 182 mg/dL (75-193) 09/27/17 18:20 HDL Cholesterol 51 mg/dL (23-92) 09/27/17 18:20 TSH 0.37 uIU/ml (0.34-5.60) 09/27/17 18:20 Serum , Qual NEGATIVE (NEGATIVE) 09/27/17 18:20 Urine Source CLEAN C 09/27/17 19:40 Urine Color YELLOW 09/27/17 19:40 Urine Clarity CLEAR (CLEAR) 09/27/17 19:40 Urine pH 6.0 (4.6 - 8.0) 09/27/17 19:40 Ur Specific [place] 1.010 (1.005-1.030) 09/27/17 19:40 Urine Protein NEGATIVE mg/dL (NEGATIVE) 09/27/17 19:40 Urine Glucose (UA) >=1000 mg/dL (NEGATIVE) H 09/27/17 19:40 Urine Ketones NEGATIVE mg/dL (NEGATIVE) 09/27/17 19:40 Urine Blood NEGATIVE (NEGATIVE) 09/27/17 19:40 Urine Nitrate NEGATIVE (NEGATIVE) 09/27/17 19:40 Urine Bilirubin NEGATIVE (NEGATIVE) 09/27/17 19:40 Urine Urobilinogen 0.2 E.U./dL (0.2 - 1.0) 09/27/17 19:40 Ur Leukocyte Esterase NEGATIVE (NEGATIVE) 09/27/17 19:40 Urine RBC NONE SEEN /hpf (0-5) 09/27/17 19:40 Urine WBC NONE SEEN /hpf (0-5) 09/27/17 19:40 Ur Epithelial Cells NONE SEEN /lpf (FEW) 09/27/17 19:40 Urine Bacteria NONE SEEN /hpf (NONE SEEN) 09/27/17 19:40 Salicylates < 25.0 mg/L (30.0-100.0) L 09/27/17 18:20 Urine Opiates Screen NEGATIVE (NEGATIVE) 09/27/17 19:40 Urine Methadone Screen NEGATIVE (NEGATIVE) 09/27/17 19:40 Acetaminophen < 10.0 ug/mL (10.0-30.0) L 09/27/17 18:20 Ur Barbiturates Screen NEGATIVE (NEGATIVE) 09/27/17 19:40 Ur Tricyclics Screen NEGATIVE (NEGATIVE) 09/27/17 19:40 Ur Phencyclidine Scrn NEGATIVE (NEGATIVE) 09/27/17 19:40 Amphetamines Screen NEGATIVE (NEGATIVE) 09/27/17 19:40 U Methamphetamines Scrn NEGATIVE (NEGATIVE) 09/27/17 19:40 U Benzodiazepines Scrn NEGATIVE (NEGATIVE) 09/27/17 19:40 U Cocaine Metab Screen NEGATIVE (NEGATIVE) 09/27/17 19:40 U Cannabinoids Screen NEGATIVE (NEGATIVE) 09/27/17 19:40 Ethyl Alcohol < 10 mg/dL (0-10) 09/27/17 18:20 RPR NONREACTIVE (NONREACTIVE) 09/27/17 18:20 - Physical Exam Vitals and I&O: Vital Signs Temp 98.4 F 10/04/17 15:41 Pulse 89 10/04/17 15:41 Resp 20 10/04/17 15:41 BP 102/65 10/04/17 15:41 Pulse Ox 95 10/04/17 15:41 Intake & Output 10/04/17 10/04/17 10/05/17 06:59 18:59 06:59 Intake Total 360 1000 Balance 360 1000 Intake: Oral 360 1000 Other: # Voids 1 4 # Bowel Movements 0 1 Stool Characteristics Soft Active Medications: Current Medications Acetaminophen (Tylenol) 650 mg PO Q4HR PRN PRN Reason: Mild Pain / Temp above 100 Stop: 11/26/17 21:55 Albuterol Sulfate (Albuterol 2.5mg/3ml Neb Ud) 2.5 mg HHN Q6H PRN PRN Reason: Bronchospasm Stop: 11/26/17 21:55 Last Admin: 10/03/17 22:54 Dose: 2.5 mg Clonazepam (Klonopin) 1 mg PO BID RODNEY PRN Reason: Protocol Stop: 12/03/17 08:59 Docusate Sodium (Colace) 100 mg PO BID RODNEY Stop: 11/27/17 08:59 Last Admin: 10/04/17 16:20 Dose: 100 mg Gabapentin (Neurontin) 300 mg PO TID RODNEY Stop: 11/27/17 08:59 Last Admin: 10/04/17 14:30 Dose: 300 mg Insulin Aspart (Novolog Insulin Sliding Scale) 0 units SUBQ ACHS RODNEY PRN Reason: Protocol Stop: 11/29/17 07:29 Last Admin: 10/04/17 17:56 Dose: 4 units Ipratropium [place] (Atrovent Neb 0.5mg/2.5ml) 0.5 mg HHN Q6HRT PRN PRN Reason: Bronchospasm Stop: 11/26/17 21:55 Last Admin: 10/03/17 22:54 Dose: 0.5 mg Levothyroxine Sodium (Synthroid) 0.075 mg PO QDAC [facility] Stop: 11/27/17 07:29 Last Admin: 10/04/17 06:30 Dose: 0.075 mg Lorazepam (Ativan) 0.5 mg PO Q4HR PRN; Protocol PRN Reason: Anxiety Stop: 11/26/17 21:55 Last Admin: 10/04/17 06:16 Dose: 0.5 mg Magnesium Hydroxide (Milk Of Magnesia) 30 ml PO DAILY PRN PRN Reason: Constipation Stop: 11/26/17 21:55 Metformin HCl (Glucophage) 1,000 mg PO BIDWM [facility] Stop: 11/27/17 07:59 Last Admin: 10/04/17 09:39 Dose: 1,000 mg Multivitamins/Vitamin C (Theragran) 1 tab PO DAILY [facility] Stop: 11/27/17 08:59 Last Admin: 10/04/17 09:39 Dose: 1 tab Pantoprazole Sodium (Protonix) 40 mg PO QDAC [facility] Stop: 11/27/17 07:29 Last Admin: 10/04/17 06:30 Dose: 40 mg Quetiapine Fumarate (Seroquel) 100 mg PO HS RODNEY PRN Reason: Protocol Stop: 11/27/17 20:59 Last Admin: 10/03/17 20:39 Dose: 100 mg Quetiapine Fumarate (Seroquel) 100 mg PO BID RODNEY PRN Reason: Protocol Stop: 12/03/17 05:34 Last Admin: 10/04/17 16:20 Dose: 100 mg General: demented HEENT: PERRLA, anicteric sclerae, throat clear Neck: No thyromegaly Lungs: CTAB Cardiovascular: RRR, Normal S1, Normal S2, without murmur Abdomen: soft, non-tender, non-distended Neurological: no change Internal Medicine Assmt/Plan - Assessment Assessment: 1.DM. 2.HYPERLIPIDEMIA. 3.HYPOTHYROIDISM. 4.DEMENTIA. - Plan Plan: CONTINUE ON CURRENT MEDICATION AND DIET. Nutritional Asmnt/Malnutr-PDOC - Dietary Evaluation Malnutrition Findings (Please click <Entered> for more info): Nutritional Asmnt/Malnutrition Start: 09/28/17 19: 16 Text: Status: Complete Freq: Document 09/28/17 19:16 SADI (Rec: 09/28/17 19:21 SADI [id number]) Nutritional Asmnt/Malnutrition Patient General Information Nutritional Screening Moderate Risk Diagnosis psychosis NOS Pertinent Medical Hx/Surgical Hx DM, hypothyroidism psychosis, hyperlidemidea, asthma Subjective Information Pt seen sleeping in bed at the time of visit, not able to provide nutrition education. Per notes, PO intake 50-75%. Current Diet Order/ Nutrition Support GLORIA, CCHO, low fat, low chelsterol, dairy free, mocha mix with meals Pertinent Medications colace, novolog, synthroid, glucophage, ehragran, protonix , seroquel Pertinent Labs 09/27 Na 133, GLucose 291, A1c 10.7 Nutritional Hx/Data Height 1.47 m Height (Calculated Centimeters) 147.3 Current Weight (lbs) 84.368 kg Weight (Calculated Kilograms) 84.4 Weight (Calculated Grams) 62267.2 [place] Body Weight 96 % [place] Body Weight 193 Body Mass Index (BMI) 38.8 Weight Status Obese GI Symptoms GI Symptoms None Last BM 09/28 Difficult in: None Skin Integrity/Comment: intact Estimated Nutritional Goals BEE in Kcals: Adj wt of IBW Calories/Kcals/Kg 30-35 adj wt 54kg Kcals Calculated 6459-3912 Protein: Adj wt of IBW Protein g/k.2 Protein Calculated 65 Fluid: ml 1646-1729 Nutritional Problem 2. Problem Problem altered nutrition related lab values Etiology hx of DM Signs/Symptoms: GLucose 291, A1c 10.7 1. Problem Problem obesity Etiology possible excessive energy intake Signs/Symptoms: BMI 38.9 Malnutrition Alert Protein-Calorie Malnutrition N/A Is there a minimum of two criteria No selected? Query Text:Check all the applicable criteria. A minimum of two criteria are recommended for diagnosis of either severe or non-severe malnutrition. Intervention/Recommendation Comments 1. Continue with current diet as ordered. 2. Monitor PO intake, wt, labs and skin integrity 3. MD to adjust insulin for optimal glycemic control 4. F/U as moderate risk in 3-5 days, 10/01-10/03 Expected Outcomes/Goals Expected Outcomes/Goals 1. PO intake to meet at least 75% of nutritional needs. 2. Wt stability, skin to remain intact, labs to improve
[2017-10-04] MEDS: Albuterol Nebulizer 2.5mg/3mL HHN PRN (20:07)
[2017-10-04] MEDS: Ipratropium Neb 0.5 mg/2.5 mL UD HHN PRN (20:07)
[2017-10-05] MEDS: Levothyroxine 0.075 Mg Tab PO SCH (06:40)
[2017-10-05] MEDS: INSULIN ASPART SLIDING SCALE 100 UNITS/ML UNIT SUBQ SCH ×4 (06:41→20:47)
[2017-10-05] MEDS: Pantoprazole 40 mg EC Tab PO SCH (06:43)
[2017-10-05] MEDS: Multivitamin Tab PO SCH (09:03)
[2017-10-05] MEDS: Ipratropium Neb 0.5 mg/2.5 mL UD HHN PRN (19:39)
[2017-10-05] MEDS: Albuterol Nebulizer 2.5mg/3mL HHN PRN (19:39)
--- NOTE | 2017-10-05 21:15 | Internal Medicine Prog Note ---
Internal Medicine Subjective - Subjective Service Date: 10/05/17 Patient seen and examined:: with staff Patient is:: awake, verbal, in bed, confused Per staff patient has:: no adverse event Internal Medicine Objective - Results Result Diagrams: 09/27/17 18:20 09/27/17 18:20 Recent Labs: Laboratory Last Values WBC 11.5 Th/cmm (4.8-10.8) H D 09/27/17 18:20 RBC 4.43 Mil/cmm (3.80-5.10) 09/27/17 18:20 Hgb 12.4 gm/dL (12-16) 09/27/17 18:20 Hct 37.7 % (41.0-60) L 09/27/17 18:20 MCV 85.3 fl (81-100) 09/27/17 18:20 MCH 28.1 pg (27.0-31.0) 09/27/17 18:20 MCHC Differential 32.9 pg (28.0-36.0) 09/27/17 18:20 RDW 12.8 % (11.5-20.0) 09/27/17 18:20 Plt Count 415 Th/cmm (150-400) H D 09/27/17 18:20 MPV 7.5 fl 09/27/17 18:20 Neutrophils % 65.6 % (40.0-80.0) 09/27/17 18:20 Lymphocytes % 24.0 % (20.0-50.0) 09/27/17 18:20 Monocytes % 6.8 % (2.0-10.0) 09/27/17 18:20 Eosinophils % 2.8 % (0.0-5.0) 09/27/17 18:20 Basophils % 0.8 % (0.0-2.0) 09/27/17 18:20 Sodium 133 mEq/L (136-145) L 09/27/17 18:20 Potassium 3.6 mEq/L (3.5-5.1) 09/27/17 18:20 Chloride 98 mEq/L (98-107) 09/27/17 18:20 Carbon Dioxide 27.3 mEq/L (21.0-31.0) 09/27/17 18:20 Anion Gap 11.3 (7.0-16.0) 09/27/17 18:20 BUN 13 mg/dL (7-25) 09/27/17 18:20 Creatinine 0.9 mg/dL (0.6-1.2) 09/27/17 18:20 Est GFR ( Amer) > 60.0 ml/min (>90) 09/27/17 18:20 Est GFR (Non-Af Amer) > 60.0 ml/min 09/27/17 18:20 BUN/Creatinine Ratio 14.4 09/27/17 18:20 Glucose 291 mg/dL (70-105) H 09/27/17 18:20 POC Glucose 248 MG/DL (70 - 105) H 10/05/17 12:07 Hemoglobin A1c % 10.7 % (4.0-6.0) H 09/27/17 18:20 Calcium 9.4 mg/dL (8.6-10.3) 09/27/17 18:20 Total Bilirubin 0.2 mg/dL (0.3-1.0) L 09/27/17 18:20 AST 11 U/L (13-39) L 09/27/17 18:20 ALT 10 U/L (7-52) 09/27/17 18:20 Alkaline Phosphatase 89 U/L (34-104) 09/27/17 18:20 Total Protein 7.8 gm/dL (6.0-8.3) 09/27/17 18:20 Albumin 4.0 gm/dL (3.7-5.3) 09/27/17 18:20 Globulin 3.8 gm/dL 09/27/17 18:20 Albumin/Globulin Ratio 1.1 (1.0-1.8) 09/27/17 18:20 Triglycerides 126 mg/dL (<150) 09/27/17 18:20 Cholesterol 231 mg/dL (<200) H 09/27/17 18:20 LDL Cholesterol Direct 182 mg/dL (75-193) 09/27/17 18:20 HDL Cholesterol 51 mg/dL (23-92) 09/27/17 18:20 TSH 0.37 uIU/ml (0.34-5.60) 09/27/17 18:20 Serum , Qual NEGATIVE (NEGATIVE) 09/27/17 18:20 Urine Source CLEAN C 01/09/18 19:40 Urine Color YELLOW 09/27/17 19:40 Urine Clarity CLEAR (CLEAR) 09/27/17 19:40 Urine pH 6.0 (4.6 - 8.0) 09/27/17 19:40 Ur Specific [place] 1.010 (1.005-1.030) 09/27/17 19:40 Urine Protein NEGATIVE mg/dL (NEGATIVE) 09/27/17 19:40 Urine Glucose (UA) >=1000 mg/dL (NEGATIVE) H 09/27/17 19:40 Urine Ketones NEGATIVE mg/dL (NEGATIVE) 09/27/17 19:40 Urine Blood NEGATIVE (NEGATIVE) 09/27/17 19:40 Urine Nitrate NEGATIVE (NEGATIVE) 09/27/17 19:40 Urine Bilirubin NEGATIVE (NEGATIVE) 09/27/17 19:40 Urine Urobilinogen 0.2 E.U./dL (0.2 - 1.0) 09/27/17 19:40 Ur Leukocyte Esterase NEGATIVE (NEGATIVE) 09/27/17 19:40 Urine RBC NONE SEEN /hpf (0-5) 09/27/17 19:40 Urine WBC NONE SEEN /hpf (0-5) 09/27/17 19:40 Ur Epithelial Cells NONE SEEN /lpf (FEW) 09/27/17 19:40 Urine Bacteria NONE SEEN /hpf (NONE SEEN) 09/27/17 19:40 Salicylates < 25.0 mg/L (30.0-100.0) L 09/27/17 18:20 Urine Opiates Screen NEGATIVE (NEGATIVE) 09/27/17 19:40 Urine Methadone Screen NEGATIVE (NEGATIVE) 09/27/17 19:40 Acetaminophen < 10.0 ug/mL (10.0-30.0) L 09/27/17 18:20 Ur Barbiturates Screen NEGATIVE (NEGATIVE) 09/27/17 19:40 Ur Tricyclics Screen NEGATIVE (NEGATIVE) 09/27/17 19:40 Ur Phencyclidine Scrn NEGATIVE (NEGATIVE) 09/27/17 19:40 Amphetamines Screen NEGATIVE (NEGATIVE) 09/27/17 19:40 U Methamphetamines Scrn NEGATIVE (NEGATIVE) 09/27/17 19:40 U Benzodiazepines Scrn NEGATIVE (NEGATIVE) 09/27/17 19:40 U Cocaine Metab Screen NEGATIVE (NEGATIVE) 09/27/17 19:40 U Cannabinoids Screen NEGATIVE (NEGATIVE) 09/27/17 19:40 Ethyl Alcohol < 10 mg/dL (0-10) 09/27/17 18:20 RPR NONREACTIVE (NONREACTIVE) 09/27/17 18:20 - Physical Exam Vitals and I&O: Vital Signs Temp 97 F 10/05/17 20:00 Pulse 98 10/05/17 20:00 Resp 20 10/05/17 20:00 BP 101/74 10/05/17 20:00 Pulse Ox 97 10/05/17 20:00 Intake & Output 10/05/17 10/05/17 10/06/17 06:59 18:59 06:59 Intake Total 300 1200 Balance 300 1200 Intake: Oral 300 1200 Other: # Voids 1 5 # Bowel Movements 0 1 Stool Characteristics Soft Soft Active Medications: Current Medications Acetaminophen (Tylenol) 650 mg PO Q4HR PRN PRN Reason: Mild Pain / Temp above 100 Stop: 11/26/17 21:55 Albuterol Sulfate (Albuterol 2.5mg/3ml Neb Ud) 2.5 mg HHN Q6H PRN PRN Reason: Bronchospasm Stop: 11/26/17 21:55 Last Admin: 10/05/17 19:39 Dose: 2.5 mg Clonazepam (Klonopin) 1 mg PO BID RODNEY PRN Reason: Protocol Stop: 12/03/17 08:59 Last Admin: 10/05/17 17:35 Dose: Not Given Docusate Sodium (Colace) 100 mg PO BID RODNEY Stop: 11/27/17 08:59 Last Admin: 10/05/17 17:35 Dose: Not Given Gabapentin (Neurontin) 300 mg PO TID RODNEY Stop: 11/27/17 08:59 Last Admin: 10/05/17 20:57 Dose: 300 mg Insulin Aspart (Novolog Insulin Sliding Scale) 0 units SUBQ ACHS RODNEY PRN Reason: Protocol Stop: 11/29/17 07:29 Last Admin: 10/05/17 20:47 Dose: 6 units Ipratropium [place] (Atrovent Neb 0.5mg/2.5ml) 0.5 mg HHN Q6HRT PRN PRN Reason: Bronchospasm Stop: 11/26/17 21:55 Last Admin: 10/05/17 19:39 Dose: 0.5 mg Levothyroxine Sodium (Synthroid) 0.075 mg PO QDAC RODNEY Stop: 11/27/17 07:29 Last Admin: 10/05/17 06:40 Dose: 0.075 mg Lorazepam (Ativan) 0.5 mg PO Q4HR PRN; Protocol PRN Reason: Anxiety Stop: 11/26/17 21:55 Last Admin: 10/05/17 20:57 Dose: 0.5 mg Magnesium Hydroxide (Milk Of Magnesia) 30 ml PO DAILY PRN PRN Reason: Constipation Stop: 11/26/17 21:55 Metformin HCl (Glucophage) 1,000 mg PO BIDWM RODNEY Stop: 11/27/17 07:59 Last Admin: 10/05/17 17:35 Dose: Not Given Multivitamins/Vitamin C (Theragran) 1 tab PO DAILY RODNEY Stop: 11/27/17 08:59 Last Admin: 10/05/17 09:03 Dose: 1 tab Pantoprazole Sodium (Protonix) 40 mg PO QDAC RODNEY Stop: 11/27/17 07:29 Last Admin: 10/05/17 06:43 Dose: 40 mg Quetiapine Fumarate (Seroquel) 100 mg PO HS RODNEY PRN Reason: Protocol Stop: 11/27/17 20:59 Last Admin: 10/05/17 20:57 Dose: 100 mg Quetiapine Fumarate (Seroquel) 100 mg PO BID RODNEY PRN Reason: Protocol Stop: 12/03/17 05:34 Last Admin: 10/05/17 17:36 Dose: Not Given General: demented HEENT: PERRLA, anicteric sclerae, throat clear Neck: No thyromegaly Lungs: CTAB Cardiovascular: RRR, Normal S1, Normal S2, without murmur Abdomen: soft, non-tender, non-distended Neurological: no change Internal Medicine Assmt/Plan - Assessment Assessment: 1.DM. 2.HYPERLIPIDEMIA. 3.HYPOTHYROIDISM. 4.DEMENTIA. - Plan Plan: CONTINUE ON CURRENT MEDICATION AND DIET. Nutritional Asmnt/Malnutr-PDOC - Dietary Evaluation Malnutrition Findings (Please click <Entered> for more info): Nutritional Asmnt/Malnutrition Start: 09/28/17 19: 16 Text: Status: Complete Freq: Document 09/28/17 19:16 SADI (Rec: 09/28/17 19:21 LCHENG [id number]) Nutritional Asmnt/Malnutrition Patient General Information Nutritional Screening Moderate Risk Diagnosis psychosis NOS Pertinent Medical Hx/Surgical Hx DM, hypothyroidism psychosis, hyperlidemidea, asthma Subjective Information Pt seen sleeping in bed at the time of visit, not able to provide nutrition education. Per notes, PO intake 50-75%. Current Diet Order/ Nutrition Support GLORIA, CCHO, low fat, low chelsterol, dairy free, mocha mix with meals Pertinent Medications colace, novolog, synthroid, glucophage, ehragran, protonix , seroquel Pertinent Labs 09/27 Na 133, GLucose 291, A1c 10.7 Nutritional Hx/Data Height 1.47 m Height (Calculated Centimeters) 147.3 Current Weight (lbs) 84.368 kg Weight (Calculated Kilograms) 84.4 Weight (Calculated Grams) 63559.2 [place] Body Weight 96 % [place] Body Weight 193 Body Mass Index (BMI) 38.8 Weight Status Obese GI Symptoms GI Symptoms None Last BM 09/28 Difficult in: None Skin Integrity/Comment: intact Estimated Nutritional Goals BEE in Kcals: Adj wt of IBW Calories/Kcals/Kg 30-35 adj wt 54kg Kcals Calculated 1479-8983 Protein: Adj wt of IBW Protein g/k.2 Protein Calculated 65 Fluid: ml 4988-9556 Nutritional Problem 2. Problem Problem altered nutrition related lab values Etiology hx of DM Signs/Symptoms: GLucose 291, A1c 10.7 1. Problem Problem obesity Etiology possible excessive energy intake Signs/Symptoms: BMI 38.9 Malnutrition Alert Protein-Calorie Malnutrition N/A Is there a minimum of two criteria No selected? Query Text:Check all the applicable criteria. A minimum of two criteria are recommended for diagnosis of either severe or non-severe malnutrition. Intervention/Recommendation Comments 1. Continue with current diet as ordered. 2. Monitor PO intake, wt, labs and skin integrity 3. MD to adjust insulin for optimal glycemic control 4. F/U as moderate risk in 3-5 days, 10/01-10/03 Expected Outcomes/Goals Expected Outcomes/Goals 1. PO intake to meet at least 75% of nutritional needs. 2. Wt stability, skin to remain intact, labs to improve
[2017-10-06] MEDS: Levothyroxine 0.075 Mg Tab PO SCH (06:30)
[2017-10-06] MEDS: Pantoprazole 40 mg EC Tab PO SCH (06:30)
[2017-10-06] MEDS: INSULIN ASPART SLIDING SCALE 100 UNITS/ML UNIT SUBQ SCH ×4 (06:30→22:13)
[2017-10-06] MEDS: Multivitamin Tab PO SCH (08:32)
--- NOTE | 2017-10-06 08:36 | Discharge Summary ---
DATE OF DISCHARGE: 10/06/2017 AGE: 57. SEX: Female. PHYSICIAN: Whitley Hollingsworth M.D., M.P.H. FINAL DIAGNOSIS/PRIMARY DIAGNOSIS: Chronic paranoid schizophrenia with acute exacerbation. REASON FOR HOSPITALIZATION: The patient was admitted to the hospital because of increased agitation and irritability. The patient also was accusing staff and the [facility] of hurting her. HOSPITAL COURSE: The patient continued to be anxious and in irritable mood. The patient also was demanding. The patient also was making allegations against the [facility] where she lives, but later on said that she was not active allegations. The patient was given gabapentin in a dose of 300 mg 3 times a day as well as Seroquel in a dose of 100 mg at bedtime and 100 mg twice a day. Gradually, the patient's affect was brighter. The patient was less agitated. The patient wanted to go back to [facility], which come from and denied the accusation against them and the patient was discharged from the hospital. PHYSICAL EXAMINATION: The patient showed no major medical problems. EXPECTED OUTCOME AFTER DISCHARGE: Fair if the patient continued to take her medications and follow up with discharge plans. [facility]# [id number]
--- NOTE | 2017-10-06 20:28 | Internal Medicine Prog Note ---
Internal Medicine Subjective - Subjective Service Date: 10/06/17 Patient seen and examined:: with staff Patient is:: awake, verbal, in bed, confused Per staff patient has:: no adverse event Internal Medicine Objective - Results Result Diagrams: 09/27/17 18:20 09/27/17 18:20 Recent Labs: Laboratory Last Values WBC 11.5 Th/cmm (4.8-10.8) H D 09/27/17 18:20 RBC 4.43 Mil/cmm (3.80-5.10) 09/27/17 18:20 Hgb 12.4 gm/dL (12-16) 09/27/17 18:20 Hct 37.7 % (41.0-60) L 09/27/17 18:20 MCV 85.3 fl (81-100) 09/27/17 18:20 MCH 28.1 pg (27.0-31.0) 09/27/17 18:20 MCHC Differential 32.9 pg (28.0-36.0) 09/27/17 18:20 RDW 12.8 % (11.5-20.0) 09/27/17 18:20 Plt Count 415 Th/cmm (150-400) H D 09/27/17 18:20 MPV 7.5 fl 09/27/17 18:20 Neutrophils % 65.6 % (40.0-80.0) 09/27/17 18:20 Lymphocytes % 24.0 % (20.0-50.0) 09/27/17 18:20 Monocytes % 6.8 % (2.0-10.0) 09/27/17 18:20 Eosinophils % 2.8 % (0.0-5.0) 09/27/17 18:20 Basophils % 0.8 % (0.0-2.0) 09/27/17 18:20 Sodium 133 mEq/L (136-145) L 09/27/17 18:20 Potassium 3.6 mEq/L (3.5-5.1) 09/27/17 18:20 Chloride 98 mEq/L (98-107) 09/27/17 18:20 Carbon Dioxide 27.3 mEq/L (21.0-31.0) 09/27/17 18:20 Anion Gap 11.3 (7.0-16.0) 01/09/18 18:20 BUN 13 mg/dL (7-25) 09/27/17 18:20 Creatinine 0.9 mg/dL (0.6-1.2) 09/27/17 18:20 Est GFR ( Amer) > 60.0 ml/min (>90) 09/27/17 18:20 Est GFR (Non-Af Amer) > 60.0 ml/min 09/27/17 18:20 BUN/Creatinine Ratio 14.4 09/27/17 18:20 Glucose 291 mg/dL (70-105) H 09/27/17 18:20 POC Glucose 248 MG/DL (70 - 105) H 10/05/17 12:07 Hemoglobin A1c % 10.7 % (4.0-6.0) H 09/27/17 18:20 Calcium 9.4 mg/dL (8.6-10.3) 09/27/17 18:20 Total Bilirubin 0.2 mg/dL (0.3-1.0) L 09/27/17 18:20 AST 11 U/L (13-39) L 09/27/17 18:20 ALT 10 U/L (7-52) 09/27/17 18:20 Alkaline Phosphatase 89 U/L (34-104) 09/27/17 18:20 Total Protein 7.8 gm/dL (6.0-8.3) 09/27/17 18:20 Albumin 4.0 gm/dL (3.7-5.3) 09/27/17 18:20 Globulin 3.8 gm/dL 09/27/17 18:20 Albumin/Globulin Ratio 1.1 (1.0-1.8) 09/27/17 18:20 Triglycerides 126 mg/dL (<150) 09/27/17 18:20 Cholesterol 231 mg/dL (<200) H 09/27/17 18:20 LDL Cholesterol Direct 182 mg/dL (75-193) 09/27/17 18:20 HDL Cholesterol 51 mg/dL (23-92) 09/27/17 18:20 TSH 0.37 uIU/ml (0.34-5.60) 09/27/17 18:20 Serum , Qual NEGATIVE (NEGATIVE) 09/27/17 18:20 Urine Source CLEAN C 01/09/18 19:40 Urine Color YELLOW 09/27/17 19:40 Urine Clarity CLEAR (CLEAR) 09/27/17 19:40 Urine pH 6.0 (4.6 - 8.0) 09/27/17 19:40 Ur Specific [place] 1.010 (1.005-1.030) 09/27/17 19:40 Urine Protein NEGATIVE mg/dL (NEGATIVE) 09/27/17 19:40 Urine Glucose (UA) >=1000 mg/dL (NEGATIVE) H 09/27/17 19:40 Urine Ketones NEGATIVE mg/dL (NEGATIVE) 09/27/17 19:40 Urine Blood NEGATIVE (NEGATIVE) 09/27/17 19:40 Urine Nitrate NEGATIVE (NEGATIVE) 09/27/17 19:40 Urine Bilirubin NEGATIVE (NEGATIVE) 09/27/17 19:40 Urine Urobilinogen 0.2 E.U./dL (0.2 - 1.0) 09/27/17 19:40 Ur Leukocyte Esterase NEGATIVE (NEGATIVE) 09/27/17 19:40 Urine RBC NONE SEEN /hpf (0-5) 09/27/17 19:40 Urine WBC NONE SEEN /hpf (0-5) 09/27/17 19:40 Ur Epithelial Cells NONE SEEN /lpf (FEW) 09/27/17 19:40 Urine Bacteria NONE SEEN /hpf (NONE SEEN) 09/27/17 19:40 Salicylates < 25.0 mg/L (30.0-100.0) L 09/27/17 18:20 Urine Opiates Screen NEGATIVE (NEGATIVE) 09/27/17 19:40 Urine Methadone Screen NEGATIVE (NEGATIVE) 09/27/17 19:40 Acetaminophen < 10.0 ug/mL (10.0-30.0) L 09/27/17 18:20 Ur Barbiturates Screen NEGATIVE (NEGATIVE) 09/27/17 19:40 Ur Tricyclics Screen NEGATIVE (NEGATIVE) 09/27/17 19:40 Ur Phencyclidine Scrn NEGATIVE (NEGATIVE) 09/27/17 19:40 Amphetamines Screen NEGATIVE (NEGATIVE) 09/27/17 19:40 U Methamphetamines Scrn NEGATIVE (NEGATIVE) 09/27/17 19:40 U Benzodiazepines Scrn NEGATIVE (NEGATIVE) 09/27/17 19:40 U Cocaine Metab Screen NEGATIVE (NEGATIVE) 09/27/17 19:40 U Cannabinoids Screen NEGATIVE (NEGATIVE) 09/27/17 19:40 Ethyl Alcohol < 10 mg/dL (0-10) 09/27/17 18:20 RPR NONREACTIVE (NONREACTIVE) 09/27/17 18:20 - Physical Exam Vitals and I&O: Vital Signs Temp 97 F 10/05/17 20:00 Pulse 85 10/06/17 07:30 Resp 18 10/06/17 07:30 BP 101/74 10/05/17 20:00 Pulse Ox 97 10/06/17 07:30 Intake & Output 10/06/17 10/06/17 10/07/17 06:59 18:59 06:59 Intake Total 240 840 Balance 240 840 Intake: Oral 240 840 Other: # Voids 2 Active Medications: Current Medications Acetaminophen (Tylenol) 650 mg PO Q4HR PRN PRN Reason: Mild Pain / Temp above 100 Stop: 11/26/17 21:55 Albuterol Sulfate (Albuterol 2.5mg/3ml Neb Ud) 2.5 mg HHN Q6H PRN PRN Reason: Bronchospasm Stop: 11/26/17 21:55 Last Admin: 10/05/17 19:39 Dose: 2.5 mg Clonazepam (Klonopin) 1 mg PO BID RODNEY PRN Reason: Protocol Stop: 12/03/17 08:59 Last Admin: 10/06/17 17:37 Dose: Not Given Docusate Sodium (Colace) 100 mg PO BID RODNEY Stop: 11/27/17 08:59 Last Admin: 10/06/17 17:39 Dose: Not Given Gabapentin (Neurontin) 300 mg PO TID R[facility]NEY Stop: 11/27/17 08:59 Last Admin: 10/06/17 13:44 Dose: 300 mg Insulin Aspart (Novolog Insulin Sliding Scale) 0 units SUBQ ACHS RODNEY PRN Reason: Protocol Stop: 11/29/17 07:29 Last Admin: 10/06/17 17:37 Dose: Not Given Ipratropium [place] (Atrovent Neb 0.5mg/2.5ml) 0.5 mg HHN Q6HRT PRN PRN Reason: Bronchospasm Stop: 11/26/17 21:55 Last Admin: 10/05/17 19:39 Dose: 0.5 mg Levothyroxine Sodium (Synthroid) 0.075 mg PO QDAC [facility] Stop: 11/27/17 07:29 Last Admin: 10/06/17 06:30 Dose: 0.075 mg Lorazepam (Ativan) 0.5 mg PO Q4HR PRN; Protocol PRN Reason: Anxiety Stop: 11/26/17 21:55 Last Admin: 10/05/17 20:57 Dose: 0.5 mg Magnesium Hydroxide (Milk Of Magnesia) 30 ml PO DAILY PRN PRN Reason: Constipation Stop: 11/26/17 21:55 Metformin HCl (Glucophage) 1,000 mg PO BIDWM [facility] Stop: 11/27/17 07:59 Last Admin: 10/06/17 17:37 Dose: Not Given Multivitamins/Vitamin C (Theragran) 1 tab PO DAILY [facility] Stop: 11/27/17 08:59 Last Admin: 10/06/17 08:32 Dose: 1 tab Pantoprazole Sodium (Protonix) 40 mg PO QDAC [facility] Stop: 11/27/17 07:29 Last Admin: 10/06/17 06:30 Dose: 40 mg Quetiapine Fumarate (Seroquel) 100 mg PO HS RODNEY PRN Reason: Protocol Stop: 11/27/17 20:59 Last Admin: 10/05/17 20:57 Dose: 100 mg Quetiapine Fumarate (Seroquel) 100 mg PO BID [facility] PRN Reason: Protocol Stop: 12/03/17 05:34 Last Admin: 10/06/17 17:38 Dose: Not Given General: demented HEENT: PERRLA, anicteric sclerae, throat clear Neck: No thyromegaly Lungs: CTAB Cardiovascular: RRR, Normal S1, Normal S2, without murmur Abdomen: soft, non-tender, non-distended Neurological: no change Internal Medicine Assmt/Plan - Assessment Assessment: 1.DM. 2.HYPERLIPIDEMIA. 3.HYPOTHYROIDISM. 4.DEMENTIA. - Plan Plan: CONTINUE ON CURRENT MEDICATION AND DIET. Nutritional Asmnt/Malnutr-PDOC - Dietary Evaluation Malnutrition Findings (Please click <Entered> for more info): Nutritional Asmnt/Malnutrition Start: 09/28/17 19: 16 Text: Status: Complete Freq: Document 09/28/17 19:16 SADI (Rec: 09/28/17 19:21 SADI [id number]) Nutritional Asmnt/Malnutrition Patient General Information Nutritional Screening Moderate Risk Diagnosis psychosis NOS Pertinent Medical Hx/Surgical Hx DM, hypothyroidism psychosis, hyperlidemidea, asthma Subjective Information Pt seen sleeping in bed at the time of visit, not able to provide nutrition education. Per notes, PO intake 50-75%. Current Diet Order/ Nutrition Support GLORIA, CCHO, low fat, low chelsterol, dairy free, mocha mix with meals Pertinent Medications colace, novolog, synthroid, glucophage, ehragran, protonix , seroquel Pertinent Labs 09/27 Na 133, GLucose 291, A1c 10.7 Nutritional Hx/Data Height 1.47 m Height (Calculated Centimeters) 147.3 Current Weight (lbs) 84.368 kg Weight (Calculated Kilograms) 84.4 Weight (Calculated Grams) 36288.2 [place] Body Weight 96 % [place] Body Weight 193 Body Mass Index (BMI) 38.8 Weight Status Obese GI Symptoms GI Symptoms None Last BM 09/28 Difficult in: None Skin Integrity/Comment: intact Estimated Nutritional Goals BEE in Kcals: Adj wt of IBW Calories/Kcals/Kg 30-35 adj wt 54kg Kcals Calculated 5009-0810 Protein: Adj wt of IBW Protein g/k.2 Protein Calculated 65 Fluid: ml 7297-2786 Nutritional Problem 2. Problem Problem altered nutrition related lab values Etiology hx of DM Signs/Symptoms: GLucose 291, A1c 10.7 1. Problem Problem obesity Etiology possible excessive energy intake Signs/Symptoms: BMI 38.9 Malnutrition Alert Protein-Calorie Malnutrition N/A Is there a minimum of two criteria No selected? Query Text:Check all the applicable criteria. A minimum of two criteria are recommended for diagnosis of either severe or non-severe malnutrition. Intervention/Recommendation Comments 1. Continue with current diet as ordered. 2. Monitor PO intake, wt, labs and skin integrity 3. MD to adjust insulin for optimal glycemic control 4. F/U as moderate risk in 3-5 days, 10/01-10/03 Expected Outcomes/Goals Expected Outcomes/Goals 1. PO intake to meet at least 75% of nutritional needs. 2. Wt stability, skin to remain intact, labs to improve
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
[2017-10-07] MEDS: INSULIN ASPART SLIDING SCALE 100 UNITS/ML UNIT SUBQ SCH ×2 (06:35→12:29)
[2017-10-07] MEDS: Levothyroxine 0.075 Mg Tab PO SCH (06:35)
[2017-10-07] MEDS: Pantoprazole 40 mg EC Tab PO SCH (06:35)
[2017-10-07] MEDS: Multivitamin Tab PO SCH ×2 (10:04→15:11)
[2017-10-07] MEDS ORDERED: Haloperidol Lactate 5 mg/mL 1mL Vial ONE (10:55)
[2017-10-07] MEDS ORDERED: Haloperidol Lactate 5 mg/mL 1mL Vial IM ONE (11:00)
--- NOTE | 2017-10-07 13:16 | Internal Medicine Prog Note ---
Internal Medicine Subjective - Subjective Service Date: 10/07/17 Patient seen and examined:: with staff Patient is:: awake, verbal, in bed, confused Per staff patient has:: no adverse event Internal Medicine Objective - Results Result Diagrams: 09/27/17 18:20 09/27/17 18:20 Recent Labs: Laboratory Last Values WBC 11.5 Th/cmm (4.8-10.8) H D 09/27/17 18:20 RBC 4.43 Mil/cmm (3.80-5.10) 09/27/17 18:20 Hgb 12.4 gm/dL (12-16) 09/27/17 18:20 Hct 37.7 % (41.0-60) L 09/27/17 18:20 MCV 85.3 fl (81-100) 09/27/17 18:20 MCH 28.1 pg (27.0-31.0) 09/27/17 18:20 MCHC Differential 32.9 pg (28.0-36.0) 09/27/17 18:20 RDW 12.8 % (11.5-20.0) 09/27/17 18:20 Plt Count 415 Th/cmm (150-400) H D 09/27/17 18:20 MPV 7.5 fl 09/27/17 18:20 Neutrophils % 65.6 % (40.0-80.0) 09/27/17 18:20 Lymphocytes % 24.0 % (20.0-50.0) 09/27/17 18:20 Monocytes % 6.8 % (2.0-10.0) 09/27/17 18:20 Eosinophils % 2.8 % (0.0-5.0) 09/27/17 18:20 Basophils % 0.8 % (0.0-2.0) 09/27/17 18:20 Sodium 133 mEq/L (136-145) L 09/27/17 18:20 Potassium 3.6 mEq/L (3.5-5.1) 09/27/17 18:20 Chloride 98 mEq/L (98-107) 09/27/17 18:20 Carbon Dioxide 27.3 mEq/L (21.0-31.0) 09/27/17 18:20 Anion Gap 11.3 (7.0-16.0) 09/27/17 18:20 BUN 13 mg/dL (7-25) 09/27/17 18:20 Creatinine 0.9 mg/dL (0.6-1.2) 09/27/17 18:20 Est GFR ( Amer) > 60.0 ml/min (>90) 09/27/17 18:20 Est GFR (Non-Af Amer) > 60.0 ml/min 09/27/17 18:20 BUN/Creatinine Ratio 14.4 09/27/17 18:20 Glucose 291 mg/dL (70-105) H 09/27/17 18:20 POC Glucose 248 MG/DL (70 - 105) H 10/05/17 12:07 Hemoglobin A1c % 10.7 % (4.0-6.0) H 09/27/17 18:20 Calcium 9.4 mg/dL (8.6-10.3) 09/27/17 18:20 Total Bilirubin 0.2 mg/dL (0.3-1.0) L 09/27/17 18:20 AST 11 U/L (13-39) L 09/27/17 18:20 ALT 10 U/L (7-52) 09/27/17 18:20 Alkaline Phosphatase 89 U/L (34-104) 09/27/17 18:20 Total Protein 7.8 gm/dL (6.0-8.3) 09/27/17 18:20 Albumin 4.0 gm/dL (3.7-5.3) 09/27/17 18:20 Globulin 3.8 gm/dL 09/27/17 18:20 Albumin/Globulin Ratio 1.1 (1.0-1.8) 09/27/17 18:20 Triglycerides 126 mg/dL (<150) 09/27/17 18:20 Cholesterol 231 mg/dL (<200) H 09/27/17 18:20 LDL Cholesterol Direct 182 mg/dL (75-193) 09/27/17 18:20 HDL Cholesterol 51 mg/dL (23-92) 09/27/17 18:20 TSH 0.37 uIU/ml (0.34-5.60) 09/27/17 18:20 Serum , Qual NEGATIVE (NEGATIVE) 09/27/17 18:20 Urine Source CLEAN C 01/09/18 19:40 Urine Color YELLOW 09/27/17 19:40 Urine Clarity CLEAR (CLEAR) 09/27/17 19:40 Urine pH 6.0 (4.6 - 8.0) 09/27/17 19:40 Ur Specific [place] 1.010 (1.005-1.030) 09/27/17 19:40 Urine Protein NEGATIVE mg/dL (NEGATIVE) 09/27/17 19:40 Urine Glucose (UA) >=1000 mg/dL (NEGATIVE) H 09/27/17 19:40 Urine Ketones NEGATIVE mg/dL (NEGATIVE) 09/27/17 19:40 Urine Blood NEGATIVE (NEGATIVE) 09/27/17 19:40 Urine Nitrate NEGATIVE (NEGATIVE) 09/27/17 19:40 Urine Bilirubin NEGATIVE (NEGATIVE) 09/27/17 19:40 Urine Urobilinogen 0.2 E.U./dL (0.2 - 1.0) 09/27/17 19:40 Ur Leukocyte Esterase NEGATIVE (NEGATIVE) 09/27/17 19:40 Urine RBC NONE SEEN /hpf (0-5) 09/27/17 19:40 Urine WBC NONE SEEN /hpf (0-5) 09/27/17 19:40 Ur Epithelial Cells NONE SEEN /lpf (FEW) 09/27/17 19:40 Urine Bacteria NONE SEEN /hpf (NONE SEEN) 09/27/17 19:40 Salicylates < 25.0 mg/L (30.0-100.0) L 09/27/17 18:20 Urine Opiates Screen NEGATIVE (NEGATIVE) 09/27/17 19:40 Urine Methadone Screen NEGATIVE (NEGATIVE) 09/27/17 19:40 Acetaminophen < 10.0 ug/mL (10.0-30.0) L 09/27/17 18:20 Ur Barbiturates Screen NEGATIVE (NEGATIVE) 09/27/17 19:40 Ur Tricyclics Screen NEGATIVE (NEGATIVE) 09/27/17 19:40 Ur Phencyclidine Scrn NEGATIVE (NEGATIVE) 09/27/17 19:40 Amphetamines Screen NEGATIVE (NEGATIVE) 09/27/17 19:40 U Methamphetamines Scrn NEGATIVE (NEGATIVE) 09/27/17 19:40 U Benzodiazepines Scrn NEGATIVE (NEGATIVE) 09/27/17 19:40 U Cocaine Metab Screen NEGATIVE (NEGATIVE) 09/27/17 19:40 U Cannabinoids Screen NEGATIVE (NEGATIVE) 09/27/17 19:40 Ethyl Alcohol < 10 mg/dL (0-10) 09/27/17 18:20 RPR NONREACTIVE (NONREACTIVE) 09/27/17 18:20 - Physical Exam Vitals and I&O: Vital Signs Temp 97 F 10/05/17 20:00 Pulse 85 10/06/17 21:32 Resp 18 10/06/17 21:32 BP 101/74 10/05/17 20:00 Pulse Ox 96 10/06/17 21:32 Intake & Output 10/06/17 10/07/17 10/07/17 18:59 06:59 18:59 Intake Total 840 240 Balance 840 240 Intake: Oral 840 240 Other: # Voids 2 # Bowel Movements 1 Active Medications: Current Medications Acetaminophen (Tylenol) 650 mg PO Q4HR PRN PRN Reason: Mild Pain / Temp above 100 Stop: 11/26/17 21:55 Albuterol Sulfate (Albuterol 2.5mg/3ml Neb Ud) 2.5 mg HHN Q6H PRN PRN Reason: Bronchospasm Stop: 11/26/17 21:55 Last Admin: 10/05/17 19:39 Dose: 2.5 mg Clonazepam (Klonopin) 1 mg PO BID RODNEY PRN Reason: Protocol Stop: 12/03/17 08:59 Last Admin: 10/07/17 10:00 Dose: Not Given Docusate Sodium (Colace) 100 mg PO BID [facility] Stop: 11/27/17 08:59 Last Admin: 10/07/17 12:42 Dose: 100 mg Gabapentin (Neurontin) 300 mg PO TID RODNEY Stop: 11/27/17 08:59 Last Admin: 10/06/17 21:45 Dose: 300 mg Insulin Aspart (Novolog Insulin Sliding Scale) 0 units SUBQ ACHS RODNEY PRN Reason: Protocol Stop: 11/29/17 07:29 Last Admin: 10/07/17 12:29 Dose: Not Given Ipratropium [place] (Atrovent Neb 0.5mg/2.5ml) 0.5 mg HHN Q6HRT PRN PRN Reason: Bronchospasm Stop: 11/26/17 21:55 Last Admin: 10/05/17 19:39 Dose: 0.5 mg Levothyroxine Sodium (Synthroid) 0.075 mg PO QDAC [facility] Stop: 11/27/17 07:29 Last Admin: 10/07/17 06:35 Dose: Not Given Lorazepam (Ativan) 0.5 mg PO Q4HR PRN; Protocol PRN Reason: Anxiety Stop: 11/26/17 21:55 Last Admin: 10/06/17 21:45 Dose: 0.5 mg Magnesium Hydroxide (Milk Of Magnesia) 30 ml PO DAILY PRN PRN Reason: Constipation Stop: 11/26/17 21:55 Metformin HCl (Glucophage) 1,000 mg PO BIDWM [facility] Stop: 11/27/17 07:59 Last Admin: 10/07/17 10:02 Dose: Not Given Multivitamins/Vitamin C (Theragran) 1 tab PO DAILY [facility] Stop: 11/27/17 08:59 Last Admin: 10/06/17 08:32 Dose: 1 tab Pantoprazole Sodium (Protonix) 40 mg PO QDAC [facility] Stop: 11/27/17 07:29 Last Admin: 10/07/17 06:35 Dose: Not Given Quetiapine Fumarate (Seroquel) 100 mg PO HS [facility] PRN Reason: Protocol Stop: 11/27/17 20:59 Last Admin: 10/06/17 21:45 Dose: 100 mg Quetiapine Fumarate (Seroquel) 150 mg PO BID RODNEY PRN Reason: Protocol Stop: 12/03/17 06:59 General: demented HEENT: PERRLA, anicteric sclerae, throat clear Neck: No thyromegaly Lungs: CTAB Cardiovascular: RRR, Normal S1, Normal S2, without murmur Abdomen: soft, non-tender, non-distended Neurological: no change Internal Medicine Assmt/Plan - Assessment Assessment: 1.DM. 2.HYPERLIPIDEMIA. 3.HYPOTHYROIDISM. 4.DEMENTIA. - Plan Plan: CONTINUE ON CURRENT MEDICATION AND DIET. Nutritional Asmnt/Malnutr-PDOC - Dietary Evaluation Malnutrition Findings (Please click <Entered> for more info): Nutritional Asmnt/Malnutrition Start: 09/28/17 19: 16 Text: Status: Complete Freq: Document 09/28/17 19:16 HARMAN (Rec: 09/28/17 19:21 HEYDI [id number]) Nutritional Asmnt/Malnutrition Patient General Information Nutritional Screening Moderate Risk Diagnosis psychosis NOS Pertinent Medical Hx/Surgical Hx DM, hypothyroidism psychosis, hyperlidemidea, asthma Subjective Information Pt seen sleeping in bed at the time of visit, not able to provide nutrition education. Per notes, PO intake 50-75%. Current Diet Order/ Nutrition Support GLORIA, CCHO, low fat, low chelsterol, dairy free, mocha mix with meals Pertinent Medications colace, novolog, synthroid, glucophage, ehragran, protonix , seroquel Pertinent Labs 09/27 Na 133, GLucose 291, A1c 10.7 Nutritional Hx/Data Height 1.47 m Height (Calculated Centimeters) 147.3 Current Weight (lbs) 84.368 kg Weight (Calculated Kilograms) 84.4 Weight (Calculated Grams) 50119.2 [place] Body Weight 96 % [place] Body Weight 193 Body Mass Index (BMI) 38.8 Weight Status Obese GI Symptoms GI Symptoms None Last BM 09/28 Difficult in: None Skin Integrity/Comment: intact Estimated Nutritional Goals BEE in Kcals: Adj wt of IBW Calories/Kcals/Kg 30-35 adj wt 54kg Kcals Calculated 1177-2038 Protein: Adj wt of IBW Protein g/k.2 Protein Calculated 65 Fluid: ml 5547-8966 Nutritional Problem 2. Problem Problem altered nutrition related lab values Etiology hx of DM Signs/Symptoms: GLucose 291, A1c 10.7 1. Problem Problem obesity Etiology possible excessive energy intake Signs/Symptoms: BMI 38.9 Malnutrition Alert Protein-Calorie Malnutrition N/A Is there a minimum of two criteria No selected? Query Text:Check all the applicable criteria. A minimum of two criteria are recommended for diagnosis of either severe or non-severe malnutrition. Intervention/Recommendation Comments 1. Continue with current diet as ordered. 2. Monitor PO intake, wt, labs and skin integrity 3. MD to adjust insulin for optimal glycemic control 4. F/U as moderate risk in 3-5 days, 10/01-10/03 Expected Outcomes/Goals Expected Outcomes/Goals 1. PO intake to meet at least 75% of nutritional needs. 2. Wt stability, skin to remain intact, labs to improve
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
== END 2017-10-07 16:00 | DRG 885 ==
LOC: ER 17:14 → GERO 21:10
PROVIDERS: ADMIT Psychiatry & Neurology Psychiatry; ATTEND Psychiatry & Neurology Psychiatry
DX: F25.0 Schizoaffective disorder, bipolar type (principal); E11.9 Type 2 diabetes mellitus without complications; E03.9 Hypothyroidism, unspecified; J45.909 Unspecified asthma, uncomplicated; E78.5 Hyperlipidemia, unspecified; F29 Unspecified psychosis not due to a substance or known physiological condition; I10 Essential (primary) hypertension; K21.9 Gastro-esophageal reflux disease without esophagitis; Z83.3 Family history of diabetes mellitus; Z82.49 Family history of ischemic heart disease and other diseases of the circulatory system; Z88.8 Allergy status to other drugs, medicaments and biological substances; Z88.0 Allergy status to penicillin
CPT/HCPCS: 36415-UA; 80053-TC; 80061-TC; 80307; 80320-TC; 80329-TC; 81001-TC; 82948-90; 83036-90; 84443-TC; 84703-TC; 85025-TC; 86592-TC; 90779; 93005; 94640; 94760; 96374; J0696; J1200; J1630; J1815; J2060; J7613; Z7610